=== PATIENT | female | born 1945 | race Caucasian/White ===

== ENCOUNTER 2017-10-22 09:48 | Day surgery (SDC) | payer MEDICARE, OTHER ==
[2017-10-15 12:02] LABS: APPEARANCE,URINE CLEAR; BILIRUBIN,URINE NEGATIVE (NEGATIVE); GLUCOSE, URINE 50 mg/dL (NEGATIVE); KETONES,URINE NEGATIVE (NEGATIVE); LEUKOCYTE ESTERASE,URINE NEGATIVE (NEGATIVE); NITRITE,URINE NEGATIVE (NEGATIVE); PROTEIN,URINE NEGATIVE (NEGATIVE); URINE SPECIFIC GRAVITY 1.012; UROBILINOGEN,URINE NEGATIVE mg/dL (<2.0)
[2017-10-15 12:05] LABS: ABSOLUTE BASOPHILS # (AUTO) 0.1 10^3/uL (0.0-0.2); ABSOLUTE EOSINOPHILS # (AUTO) 0.2 10^3/uL (0.0-0.6); ABSOLUTE LYMPHOCYTES (AUTO) 2.5 10^3/uL (0.5-4.7); ABSOLUTE MONOCYTES (AUTO) 0.8 10^3/uL (0.1-1.4); BASOPHILS % (AUTO) 0.7 % (0-2); EOSINOPHILS % (AUTO) 2.5 % (0-6); HEMATOCRIT 37.2 % (36.0-47.0); HEMOGLOBIN 12.7 g/dL (12.0-15.5); HGB HCT DIFFERENCE 0.9; LYMPHOCYTES % (AUTO) 25.7 % (13-45); MEAN CORPUSCULAR HEMOGLOBIN 30.6 pg (27.0-33.4); MEAN CORPUSCULAR HGB CONC 34.1 g/dL (32.0-36.0); MEAN CORPUSCULAR VOLUME 90 fl (80-97); MONOCYTES % (AUTO) 8.2 % (3-13); RED BLOOD COUNT 4.14 10^6/uL (3.72-5.28); RED CELL DISTRIBUTION WIDTH 13.5 % (11.5-14.0); SEGMENTED NEUTROPHILS % (AUTO) 62.9 % (42-78); WHITE BLOOD COUNT 9.6 10^3/uL (4.0-10.5)
[2017-10-15 12:29] LABS: ANION GAP 17 (5-19); BLOOD UREA NITROGEN 29 mg/dL (7-20); CALCIUM 9.2 mg/dL (8.4-10.2); CARBON DIOXIDE 30 mmol/L (22-30); CHLORIDE 92 mmol/L (98-107); CREATININE RESULT 1.04 mg/dL (0.52-1.25); GLUCOSE 209 mg/dL (75-110); POTASSIUM 3.6 mmol/L (3.6-5.0); SODIUM 138.7 mmol/L (137-145)
--- NOTE | 2017-10-15 13:29 | RADIOLOGY REPORT (SQ) ---
EXAM DESCRIPTION: CHEST PA/LATERAL COMPLETED DATE/TIME: 10/15/2017 11:51 am REASON FOR STUDY: PRE-OP COMPARISON: None. EXAM PARAMETERS: NUMBER OF VIEWS: two views TECHNIQUE: Digital Frontal and Lateral radiographic views of the chest acquired. RADIATION DOSE: NA LIMITATIONS: none FINDINGS: LUNGS AND PLEURA: No infiltrates or effusions. There is a 12 mm nodule in the right lower lung field. This is possibly seen on the lateral view is PE MEDIASTINUM AND HILAR STRUCTURES: No masses or contour abnormalities. HEART AND VASCULAR STRUCTURES: Heart size is borderline. There is no failure. BONES: No acute findings. HARDWARE: None in the chest. OTHER: No other significant finding. IMPRESSION: 1. 12 mm right pulmonary nodule. Consider PET-CT. Consider biopsy. 2. No acute infiltrates. 3. Borderline heart size with no failure. TECHNICAL DOCUMENTATION: JOB ID: [id number] [employer]- All Rights Reserved
--- NOTE | 2017-10-15 21:18 | EKG REPORT ---
SEVERITY:- ABNORMAL ECG - SINUS RHYTHM PROBABLE LVH WITH SECONDARY REPOL ABNRM : Confirmed by: Dulce Hutson MD 15-Oct-2017 21:16:51
[~2017-10-22 09:48] MED LIST: CEFAZOLIN 2 GM/D5W RTU 2 GM/50 ML RTUPB IV PRN; DEXAMETHASONE SOD PHOSPHATE INJ 4 MG/1 ML VIAL ONE; GLYCOPYRROLATE INJ 0.4 MG/2 ML VIAL ONE; LIDOCAINE 2% INJ-PF (20 MG/ML) 2 ML AMPUL ONE; NORMAL SALINE 1000 ML (RENAL PATIENTS) IV PRN; ONDANSETRON HCL INJ/PF 4 MG/2 ML SDV ONE; SUCCINYLCHOLINE CHLORIDE INJ 200 MG/10 ML VIAL ONE
[2017-10-22] MEDS ORDERED: BUPIVACAINE HCL 0.5 % INJ/PF 30 ML SDV ONE (10:31)
[2017-10-22 11:02] LABS: POTASSIUM 4.1 mmol/L (3.6-5.0)
[2017-10-22] MEDS ORDERED: MIDAZOLAM 2 MG/2 ML INJ ONE (12:05)
[2017-10-22] MEDS ORDERED: LIDOCAINE 2% INJ-PF (20 MG/ML) 10 ML AMPUL ONE (12:05)
[2017-10-22] MEDS ORDERED: FENTANYL CITRATE INJ/PF 100 MCG/2 ML AMPUL ONE ×2 (12:05→13:16)
[2017-10-22] MEDS ORDERED: EPHEDRINE SULFATE INJ 50 MG/1 ML AMPULE ONE (12:06)
[2017-10-22] MEDS ORDERED: PROPOFOL INJ 200 MG/20 ML VIAL IV ONE (12:06)
[2017-10-22] MEDS ORDERED: ONDANSETRON HCL INJ/PF 4 MG/2 ML SDV ONE (12:06)
[2017-10-22] MEDS ORDERED: ACETAMINOPHEN 100 ML IV ONE ×2 (12:06→18:05)
[2017-10-22] MEDS ORDERED: MEPERIDINE HCL/PF INJ 25 MG/1 ML DISP.SYRIN IV PRN ×2 (13:28→15:34)
[2017-10-22] MEDS ORDERED: FENTANYL CITRATE INJ/PF 100 MCG/2 ML AMPUL IV PRN ×6 (13:28→15:34)
[2017-10-22] MEDS ORDERED: DIPHENHYDRAMINE HCL 50 MG/ML VIAL IV PRN ×2 (13:28→15:34)
[2017-10-22] MEDS ORDERED: PROMETHAZINE HCL INJ 25 MG/1 ML VIAL IV PRN ×4 (13:28→15:34)
[2017-10-22] MEDS ORDERED: ONDANSETRON HCL INJ/PF 4 MG/2 ML SDV IV PRN ×2 (13:28→19:54)
[2017-10-22] MEDS ORDERED: OXYCODONE-ACETAMINOPHEN 5-325 MG TABLET PO PRN ×4 (13:28→15:34)
[2017-10-22] MEDS ORDERED: MORPHINE SULFATE 10 MG/ML INJ IV PRN ×3 (13:28→19:54)
[2017-10-22] MEDS ORDERED: HYDRALAZINE HCL INJ/PF 20 MG/1 ML SDV ONE (13:40)
[2017-10-22] MEDS ORDERED: HYDROMORPHONE HCL INJ/PF 2 MG/ML AMPULE ONE (14:46)
[2017-10-22] MEDS ORDERED: CEFAZOLIN INJ 1 GM VIAL ONE (16:29)
[2017-10-22] MEDS ORDERED: DOCUSATE SODIUM 100 MG CAPSULE PO PRN (17:13)
[2017-10-22] MEDS ORDERED: FUROSEMIDE 80 MG TABLET PO SCH (17:15)
--- NOTE | 2017-10-22 17:53 | RADIOLOGY REPORT (SQ) ---
EXAM DESCRIPTION: NO CHG FLUORO; ELBOW LEFT AP/LATERAL COMPLETED DATE/TIME: 10/22/2017 5:38 pm REASON FOR STUDY: ORIF LT ELBOW COMPARISON: None. FLUOROSCOPY TIME: 1.2 minutes 9 Images saved to PACS LIMITATIONS: None. PROCEDURE: ORIF elbow fractures and left radial head replacement appear FINDINGS: Images document the progress of the procedure. IMPRESSION: ORIF. Consult operative report for more detail. COMMENT: PQRS 6045F: Fluoroscopy time of the procedure is documented in the report. TECHNICAL DOCUMENTATION: JOB ID: [id number] [employer]- All Rights Reserved
--- NOTE | 2017-10-22 17:53 | RADIOLOGY REPORT (SQ) ---
EXAM DESCRIPTION: NO CHG FLUORO; ELBOW LEFT AP/LATERAL COMPLETED DATE/TIME: 10/22/2017 5:38 pm REASON FOR STUDY: ORIF LT ELBOW COMPARISON: None. FLUOROSCOPY TIME: 1.2 minutes 9 Images saved to PACS LIMITATIONS: None. PROCEDURE: ORIF elbow fractures and left radial head replacement appear FINDINGS: Images document the progress of the procedure. IMPRESSION: ORIF. Consult operative report for more detail. COMMENT: PQRS 6045F: Fluoroscopy time of the procedure is documented in the report. TECHNICAL DOCUMENTATION: JOB ID: [id number] [employer]- All Rights Reserved
[2017-10-22] MEDS ORDERED: (PENDING PHARMACY ID) (Metformin Hcl [Metformin Hcl] 1,000 MG) PO SCH (18:00)
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
[2017-10-22] MEDS ORDERED: KETOROLAC TROMETHAMINE INJ/PF 30 MG/1 ML SDV ONE (18:05)
[2017-10-22] MEDS: HYDRALAZINE HCL INJ/PF 20 MG/1 ML SDV ONE ×2 (18:20→18:40)
[2017-10-22] MEDS ORDERED: INSULIN LISPRO 100 UNIT/ML 3 ML VIAL SUBCUT PRN (18:57)
[2017-10-22] MEDS ORDERED: DEXTROSE 40% GEL 15 GM TUBE X 2 PO PRN (18:57)
[2017-10-22] MEDS ORDERED: DEXTROSE 50%-WATER SYRINGE 12.5 GM/25 ML DOSE IV PRN (18:57)
[2017-10-22] MEDS ORDERED: GLUCAGON,HUMAN RECOMB 1 MG INJ IM PRN (18:57)
[2017-10-22] MEDS ORDERED: DEXTROSE 40% GEL 15 GM TUBE PO PRN (18:57)
[2017-10-22] MEDS ORDERED: DEXTROSE 50%-WATER SYRINGE 25 GM/50 ML DOSE IV PRN (18:57)
[2017-10-22] MEDS ORDERED: HYDRALAZINE HCL INJ/PF 20 MG/1 ML SDV IV ONE (19:00)
[2017-10-22] MEDS ORDERED: GLIMEPIRIDE 4 MG TABLET PO ONE (21:00)
[2017-10-22] MEDS ORDERED: METFORMIN HCL 500 MG TABLET PO ONE (21:00)
[2017-10-22] MEDS ORDERED: (PENDING PHARMACY ID) (Melatonin [Melatonin] 10 MG) PO SCH (22:00)
[2017-10-22] MEDS ORDERED: METOPROLOL SUCCINATE 50 MG TAB.SR.24H PO SCH (22:00)
[2017-10-22] MEDS ORDERED: RIVAROXABAN 10 MG TABLET PO SCH (22:00)
[2017-10-22] MEDS ORDERED: ATORVASTATIN CALCIUM 10 MG TABLET PO SCH (22:00)
[2017-10-22] MEDS ORDERED: (PENDING PHARMACY ID) (Metoprolol Succinate [Metoprolol Succinate] 100 MG) PO SCH (22:00)
[2017-10-22] MEDS ORDERED: SERTRALINE HCL 50 MG TABLET PO SCH (22:00)
[2017-10-22] MEDS ORDERED: (PENDING PHARMACY ID) (Pravastatin Sodium [Pravastatin Sodium] 20 MG) PO SCH (22:00)
[2017-10-22] MEDS: CLONIDINE HCL 0.2 MG TABLET PO SCH (22:01)
[2017-10-22] MEDS: OXYCODONE-ACETAMINOPHEN 5-325 MG TABLET PO PRN (22:02)
[2017-10-22] MEDS: CEFAZOLIN 2 GM/D5W RTU 2 GM/50 ML RTUPB IV SCH (23:10)
[2017-10-22] MEDS: KETOROLAC TROMETHAMINE INJ/PF 30 MG/1 ML SDV IV SCH (23:11)
[2017-10-23] MEDS: ACETAMINOPHEN 100 ML IV SCH ×2 (02:17→09:53)
[2017-10-23] MEDS: CEFAZOLIN 2 GM/D5W RTU 2 GM/50 ML RTUPB IV SCH (05:01)
[2017-10-23] MEDS: KETOROLAC TROMETHAMINE INJ/PF 30 MG/1 ML SDV IV SCH (05:01)
[2017-10-23] MEDS: OXYCODONE-ACETAMINOPHEN 5-325 MG TABLET PO PRN (05:02)
[2017-10-23 05:35] LABS: HEMATOCRIT 35.2 % (36.0-47.0); HEMOGLOBIN 11.8 g/dL (12.0-15.5); HGB HCT DIFFERENCE 0.2; MEAN CORPUSCULAR HEMOGLOBIN 30.5 pg (27.0-33.4); MEAN CORPUSCULAR HGB CONC 33.6 g/dL (32.0-36.0); MEAN CORPUSCULAR VOLUME 91 fl (80-97); RED BLOOD COUNT 3.88 10^6/uL (3.72-5.28); RED CELL DISTRIBUTION WIDTH 14.2 % (11.5-14.0); WHITE BLOOD COUNT 14.2 10^3/uL (4.0-10.5)
[2017-10-23] MEDS ORDERED: LANSOPRAZOLE 30 MG TAB.RAP.DR PO SCH (06:00)
[2017-10-23] MEDS ORDERED: FUROSEMIDE 40 MG TABLET PO SCH (08:00)
[2017-10-23] MEDS ORDERED: METFORMIN HCL 500 MG TABLET PO SCH (08:00)
--- NOTE | 2017-10-23 08:14 | PDOC DISCHARGE SUMMARY ---
General - Admit/Disc Date/PCP Admission Date/Primary Care Provider: KATHERIN SCHRADER MD Discharge Date: 10/23/17 - Additional Information Discharge Activity: No Lifting Over 10 Pounds, No Lifting/Push/Pulling Home Medications: Acetaminophen/Diphenhydramine [Tylenol Pm Ex-Strength Caplet] 2 tab PO QHS PRN 10/15/17 Aspirin [Lo-Dose Aspirin EC] 81 mg PO DAILY 10/15/17 Clonidine HCl 0.2 mg PO BID 10/15/17 Docusate Sodium [Dok] 100 mg PO DAILY PRN 10/15/17 Furosemide [Lasix 80 mg Tablet] 80 mg PO ASDIR 10/15/17 Glimepiride 4 mg PO BID 10/15/17 Insulin Aspart Prot/Insuln Asp [Novolog Mix 70-30 Flexpen Syrn] 25 units SUBCUT QHS 10/15/17 Insulin Aspart Prot/Insuln Asp [Novolog Mix 70-30 Flexpen Syrn] 45 units SUBCUT QAM 10/15/17 Lisinopril/Hydrochlorothiazide [Lisinopril-Hctz 20-25 mg Tab] 1 tab PO DAILY Melatonin 10 mg PO QHS 10/15/17 Metformin HCl 1,000 mg PO BID 10/15/17 Metoprolol Succinate 100 mg PO QHS 10/15/17 Multivitamin [Multivitamins] 1 cap PO DAILY 10/15/17 Omeprazole 40 mg PO DAILY 10/15/17 Ondansetron [Zofran Odt 4 mg Tablet] 4 mg PO Q6 PRN 10/15/17 Oxycodone HCl/Acetaminophen [Percocet 5-325 mg Tablet] 1 tab PO Q6 PRN 10/15/17 Pravastatin Sodium 20 mg PO QHS 10/15/17 Sertraline HCl 100 mg PO QHS 10/15/17 Oxycodone HCl/Acetaminophen [Percocet 7.5-325 mg Tablet] 1 - 2 tab PO ASDIR PRN #50 tab 10/22/17 Rivaroxaban [Xarelto 10 mg Tablet] 10 mg PO DAILY #14 tablet 10/22/17 History of Present Illness History of Present Illness: CAPRICE KNOTT is a 72 year old female with a trans-olecranon fracture dislocation left elbow with concomitant radial neck fracture who was admitted for an open reduction internal fixation of the left elbow. Hospital Course Hospital Course: 72-year-old white female with a Trans-olecranon fracture dislocation left elbow with concomitant radial neck fracture who was admitted through the OR and underwent open reduction internal fixation of the left elbow with coronoid fixation and radial head arthroplasty as well as repair of the ulnar collateral ligament. She was taken to PACU in satisfactory condition and returned to the surgical floor where her pain was controlled by nursing staff and Dr. motley and she stayed overnight. She has remained comfortable and her pain is been well controlled overnight. She will be discharged home today. She will follow- up with Dr. motley at [facility] 2 weeks postoperatively for reevaluation. Physical Exam Vital Signs: Temp Pulse Resp BP Pulse Ox 36.8 C 71 18 117/51 L 95 10/23/17 04:00 10/23/17 04:00 10/23/17 04:00 10/23/17 04:00 10/23/17 04:00 Intake & Output 10/22/17 10/23/17 10/24/17 06:59 06:59 06:59 Intake Total 4010 Output Total 1850 Balance 2160 Weight 78.47 kg General appearance: PRESENT: no acute distress, well-developed, well-nourished Head exam: PRESENT: atraumatic, normocephalic Respiratory exam: PRESENT: unlabored Additional comments: Patient lying recumbent in hospital bed with left upper extremity in postop compression dressing elevated on a pillow. This dressing is clean dry and intact. She has brisk capillary refill to fingers on bilateral upper extremities and her sensory motor functions are intact and her distal neurovascular exam is intact. Although she is tentative to move the left upper extremity she exhibits appropriate range of motion for this stage in healing process. Musculoskeletal exam: PRESENT: ambulatory Additional comments: As stated patient's left upper extremity is in postop compression dressing and she exhibits appropriate range of motion of the left shoulder at this time. She will remain immobilized in the upper extremity splint and postop compression dressing until her follow-up appointment with Dr. motley at [facility] for surgery. she may require occupational therapy referral when she is discharged from hospital to improve strength and range of motion of the left upper extremity. This will be ultimately determined by Dr. Malone. Neurological exam: PRESENT: alert, awake, oriented to person, oriented to place , oriented to time, oriented to situation, CN II-XII grossly intact. ABSENT: motor sensory deficit Psychiatric exam: PRESENT: appropriate affect, normal mood. ABSENT: homicidal ideation, suicidal ideation Skin exam: PRESENT: dry, intact, warm. ABSENT: cyanosis, rash Results Laboratory Results: 10/23/17 05:12 10/22/17 10:18 10/22/17 10/23/17 10:18 05:12 WBC 14.2 H RBC 3.88 Hgb 11.8 L Hct 35.2 L MCV 91 MCH 30.5 MCHC 33.6 RDW 14.2 H Plt Count 314 Potassium 4.1 Glucose 193 H Impressions: Chest X-Ray 10/15/17 11:35 IMPRESSION: 1. 12 mm right pulmonary nodule. Consider PET-CT. Consider biopsy. 2. No acute infiltrates. 3. Borderline heart size with no failure. Elbow X-Ray 10/22/17 00:00 IMPRESSION: ORIF. Consult operative report for more detail. Fluoroscopy 10/22/17 00:00 IMPRESSION: ORIF. Consult operative report for more detail. Plan Discharge Plan: 72-year-old white female one day status post open reduction internal fixation of left elbow with coronoid fixation, radial head arthroplasty and ulnar collateral ligament repair. Patient will be discharged home today. Her OpSite compression dressing and splint will be left in place in the left upper extremity immobilized until her follow-up appointment [facility] for surgery. She will follow-up [address] Malone for reevaluation. Time Spent: Less than 30 Minutes
[2017-10-23 08:46] VITALS: BP 130/50
[2017-10-23] MEDS ORDERED: (PENDING PHARMACY ID) (Multivitamin [Multivitamins] 1 CAP) PO SCH (10:00)
[2017-10-23] MEDS ORDERED: (PENDING PHARMACY ID) (Lisinopril/Hydrochlorothiazide [Lisinopril-Hctz 20-25 Mg Tab] 1 TAB PO SCH (10:00)
[2017-10-23] MEDS ORDERED: HYDROCHLOROTHIAZIDE 25 MG TABLET PO SCH (10:00)
[2017-10-23] MEDS ORDERED: GLIMEPIRIDE 4 MG TABLET PO SCH (10:00)
[2017-10-23] MEDS ORDERED: LISINOPRIL 10 MG TABLET PO SCH (10:00)
[2017-10-23] MEDS ORDERED: ASPIRIN 81 MG TABLET, ENT COATED PO SCH (10:00)
[2017-10-23] MEDS ORDERED: MULTIVITAMIN TABLET PO SCH (10:00)
[2017-10-23] MEDS: CLONIDINE HCL 0.2 MG TABLET PO SCH (11:16)
== END 2017-10-23 11:25 | disposition home or self-care (01) ==
LOC: 3W 09:48 → 2N 09:48 → OROUT 09:48
PROVIDERS: ATTEND Orthopaedic Surgery
PROC: 0MQ40ZZ Repair Left Elbow Bursa and Ligament, Open Approach (ICD-10-PCS; 2017-10-22)
PROC: 0PSL04Z Reposition Left Ulna with Internal Fixation Device, Open Approach (ICD-10-PCS; principal; 2017-10-22 12:15)
PROC: 0RQM0ZZ Repair Left Elbow Joint, Open Approach (ICD-10-PCS; 2017-10-22 12:15)
DX: S52.132A Displaced fracture of neck of left radius, initial encounter for closed fracture (principal); S52.022A Displaced fracture of olecranon process without intraarticular extension of left ulna, initial encounter for closed fracture; S52.272A Monteggia's fracture of left ulna, initial encounter for closed fracture; W19.XXXA Unspecified fall, initial encounter; W51.XXXA Accidental striking against or bumped into by another person, initial encounter; I10 Essential (primary) hypertension; E11.65 Type 2 diabetes mellitus with hyperglycemia; E78.5 Hyperlipidemia, unspecified; K21.9 Gastro-esophageal reflux disease without esophagitis; E66.9 Obesity, unspecified; Z68.33 Body mass index [BMI] 33.0-33.9, adult; Z79.899 Other long term (current) drug therapy; Z79.84 Long term (current) use of oral hypoglycemic drugs; Z79.82 Long term (current) use of aspirin; Z85.828 Personal history of other malignant neoplasm of skin; Z79.4 Long term (current) use of insulin; Z79.01 Long term (current) use of anticoagulants
CPT/HCPCS: 93005; 36415 ×2; 82962; 82947; 84132; 85025; 85027; 80048; 81001; 83036; 71020; 73070; 93010; 24685; 24365; 24999; G0378; G0379; C1713 ×3; J2250; J0690 ×3; A9270 ×16; J1100; J3490 ×3; J3010; J0360; J1885 ×2; J2270; J1170; J0330; J2405; J2704; J0131 ×2; 01740

== ENCOUNTER 2017-12-03 11:48 | Inpatient (IN) | payer MEDICARE ==
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
--- NOTE | 2017-12-03 13:13 | EKG REPORT ---
SEVERITY:- ABNORMAL ECG - SINUS TACHYCARDIA MULTIPLE ATRIAL PREMATURE COMPLEXES PROBABLE LEFT ATRIAL ABNORMALITY PROBABLE LVH WITH SECONDARY REPOL ABNRM : Confirmed by: Jayy Domingo MD 03-Dec-2017 13:12:48
[2017-12-03 13:17] LABS: ABSOLUTE EOSINOPHILS # (AUTO) 0.1 10^3/uL (0.0-0.6); ABSOLUTE MONOCYTES (AUTO) 0.5 10^3/uL (0.1-1.4); ABSOLUTE NEUT (AUTO) 10.7 10^3/uL (1.7-8.2); BASOPHILS % (AUTO) 0.3 % (0-2); EOSINOPHILS % (AUTO) 0.7 % (0-6); HEMOGLOBIN 12.4 g/dL (12.0-15.5); LYMPHOCYTES % (AUTO) 8.4 % (13-45); MEAN CORPUSCULAR HEMOGLOBIN 28.6 pg (27.0-33.4); MEAN CORPUSCULAR HGB CONC 32.6 g/dL (32.0-36.0); MEAN CORPUSCULAR VOLUME 88 fl (80-97); MONOCYTES % (AUTO) 3.8 % (3-13); PLATELET COUNT 322 10^3/uL (150-450); RED BLOOD COUNT 4.33 10^6/uL (3.72-5.28); RED CELL DISTRIBUTION WIDTH 15.4 % (11.5-14.0); SEGMENTED NEUTROPHILS % (AUTO) 86.8 % (42-78); TOTAL CELLS COUNTED % (AUTO) 100 %; WHITE BLOOD COUNT 12.4 10^3/uL (4.0-10.5)
[2017-12-03 13:19] LABS: APPEARANCE,URINE CLEAR; BILIRUBIN,URINE NEGATIVE (NEGATIVE); COLOR,URINE YELLOW; GLUCOSE, URINE >=500 mg/dL (NEGATIVE); KETONES,URINE NEGATIVE (NEGATIVE); LEUKOCYTE ESTERASE,URINE NEGATIVE (NEGATIVE); NITRITE,URINE NEGATIVE (NEGATIVE); PROTEIN,URINE NEGATIVE (NEGATIVE); URINE SPECIFIC GRAVITY 1.028
--- NOTE | 2017-12-03 13:35 | RADIOLOGY REPORT (SQ) ---
EXAM DESCRIPTION: CHEST PA/LAT COMPLETED DATE/TIME: 12/03/2017 1:16 pm REASON FOR STUDY: Worsening shortness of breath 3-4 days COMPARISON: Two-view chest 10/15/2017 EXAM PARAMETERS: NUMBER OF VIEWS: two views TECHNIQUE: Digital Frontal and Lateral radiographic views of the chest acquired. RADIATION DOSE: NA LIMITATIONS: none FINDINGS: LUNGS AND PLEURA: No opacities, masses or pneumothorax. No pleural effusion. MEDIASTINUM AND HILAR STRUCTURES: No masses or contour abnormalities. HEART AND VASCULAR STRUCTURES: Heart normal size. No evidence for failure. BONES: Osteoporotic. No acute fracture HARDWARE: None in the chest. OTHER: No other significant finding. IMPRESSION: NO SIGNIFICANT RADIOGRAPHIC FINDING IN THE CHEST. TECHNICAL DOCUMENTATION: JOB ID: [id number] [employer]- All Rights Reserved
--- NOTE | 2017-12-03 13:38 | RADIOLOGY REPORT (SQ) ---
EXAM DESCRIPTION: L SPINE WHOLE COMPLETED DATE/TIME: 12/03/2017 1:16 pm REASON FOR STUDY: fall 1--18, LBP COMPARISON: None. NUMBER OF VIEWS: Five views including obliques. TECHNIQUE: AP, lateral, oblique, and sacral radiographic images acquired of the lumbar spine. LIMITATIONS: None. FINDINGS: MINERALIZATION: Osteopenic/osteoporotic SEGMENTATION: Normal. No transitional anatomy. ALIGNMENT: Normal. VERTEBRAE: Maintained height. No fracture or worrisome bone lesion. DISCS: Mild disc space loss of height with anterior osteophyte formation at L1-2, L2-3, and L3-4 POSTERIOR ELEMENTS: Pedicles and facets are intact. No pars defect or posterior arch defects. Bilat eral facet arthropathy at L4-5 and L5-S1 HARDWARE: None in the spine. PARASPINAL SOFT TISSUES: Multiple calcified stones in the gallbladder PELVIS: SI joint sclerosis. Pelvis not entirely included in the field of view OTHER: No other significant finding. IMPRESSION: No lumbar compression deformity is identified. TECHNICAL DOCUMENTATION: JOB ID: [id number] [employer]- All Rights Reserved
[2017-12-03 13:42] LABS: ALANINE AMINOTRANSFERASE 46 U/L (9-52); ALBUMIN 3.8 g/dL (3.5-5.0); ALKALINE PHOSPHATASE 252 U/L (38-126); ANION GAP 17 (5-19); ASPARTATE AMINO TRANSFERASE 45 U/L (14-36); BILIRUBIN,DIRECT 0.5 mg/dL (0.0-0.4); BLOOD UREA NITROGEN 38 mg/dL (7-20); CALCIUM 9.1 mg/dL (8.4-10.2); CARBON DIOXIDE 23 mmol/L (22-30); CHLORIDE 94 mmol/L (98-107); CREATINE KINASE 27 U/L (30-135); GLUCOSE 327 mg/dL (75-110); POTASSIUM 3.6 mmol/L (3.6-5.0); SODIUM 133.9 mmol/L (137-145); TOTAL PROTEIN 7.1 g/dL (6.3-8.2)
[2017-12-03 13:58] LABS: TROPONIN I 0.11 ng/mL
--- NOTE | 2017-12-03 14:32 | ER Document Report ---
ED General - General Chief Complaint: Breathing Difficulty Stated Complaint: SHORTNESS OF BREATH Time Seen by Provider: 12/03/17 11:58 Notes: 72-year-old female patient emergency department chief complaint of shortness of breath. States that she had diarrhea a week. Was a little weak and dizzy and fell. Landed on her butt. Complaining of pain in her low back. Pain is now radiating down both legs. Also complaining of chest pain and shortness of breath now. She states she is also having some chest pain TRAVEL OUTSIDE OF THE [place] IN LAST 30 DAYS: No - HPI Onset: Last week Onset/Duration: Gradual, Worse Quality of pain: Throbbing Severity: Moderate Pain Level: 3 Associated symptoms: Nonproductive cough, Fever Exacerbated by: Sitting, Standing, Movement, Walking, Coughing Relieved by: Denies - Related Data Allergies/Adverse Reactions: No Known Allergies Allergy (Verified 12/03/17 11:51) Home Medications: Current Home Medications Sulfamethoxazole/Trimethoprim [Sulfamethoxazole-Tmp Ds Tablet] 1 each PO DAILY 12/03/17 [History] Past Medical History - General Information source: Patient - Social History Smoking Status: Never Smoker Chew tobacco use (# tins/day): No Frequency of alcohol use: None Drug Abuse: None Lives with: Family Family History: Reviewed & Not Pertinent Patient has suicidal ideation: No Patient has homicidal ideation: No - Past Medical History Cardiac Medical History: Reports: Hx Hypertension Denies: Hx Coronary Artery Disease, Hx Heart Attack Pulmonary Medical History: Denies: Hx Asthma, Hx Bronchitis, Hx COPD, Hx Pneumonia Neurological Medical History: Denies: Hx Cerebrovascular Accident, Hx Seizures Renal/ Medical History: Denies: Hx Peritoneal Dialysis Musculoskeltal Medical History: Denies Hx Arthritis Psychiatric Medical History: Reports: Hx Depression - Immunizations Hx Diphtheria, Pertussis, Tetanus Vaccination: Yes Hx Pneumococcal Vaccination: 09/25/17 Review of Systems - Review of Systems Constitutional: Chills, Fever, Malaise, Weakness EENT: No symptoms reported Cardiovascular: Palpitations, Dyspnea, Dizziness, Lightheaded Respiratory: Cough, Short of breath Gastrointestinal: No symptoms reported Genitourinary: No symptoms reported Female Genitourinary: No symptoms reported Musculoskeletal: Back pain Skin: No symptoms reported Hematologic/Lymphatic: No symptoms reported Neurological/Psychological: No symptoms reported Physical Exam - Vital signs Vitals: Temp Pulse Resp BP Pulse Ox 98.3 F 111 H 20 119/94 H 99 12/03/17 12:00 12/03/17 12:00 12/03/17 12:00 12/03/17 12:00 12/03/17 12:00 Interpretation: Normal - General General appearance: Alert Notes: Uncomfortable appearing. - HEENT Head: Normocephalic, Atraumatic Eyes: Normal Pupils: PERRL - Respiratory Respiratory status: No respiratory distress Chest status: Nontender Breath sounds: Rales - Faint rales bilateral at the base Chest palpation: Normal - Cardiovascular Rhythm: Irregularly irregular, Tachycardia Heart sounds: Normal auscultation Murmur: No - Abdominal Inspection: Normal Distension: No distension Bowel sounds: Normal Tenderness: Nontender Organomegaly: No organomegaly - Back Back: Normal. No: Deformity/step-off, CVA tenderness - There is tenderness to palpation midline of the lumbar spine approximately L3 level. - Extremities General upper extremity: Normal inspection, Nontender, Normal color, Normal ROM , Normal temperature General lower extremity: Normal inspection, Nontender, Normal color, Normal ROM , Normal temperature, Normal weight bearing. No: Marcos's sign - Neurological Neuro grossly intact: Yes Cognition: Normal Orientation: AAOx4 [place] Coma Scale Eye Opening: Spontaneous Josiah Coma Scale Verbal: Oriented [place] Coma Scale Motor: Obeys Commands Josiah Coma Scale Total: 15 Speech: Normal Motor strength normal: LUE, RUE, LLE, RLE Sensory: Normal - Psychological Associated symptoms: Normal affect, Normal mood - Skin Skin Temperature: Warm Skin Moisture: Dry Skin Color: Normal Course - Re-evaluation Re-evalutation: 12/03/17 14:59 Patient with elevated BNP, shortness of breath with tachycardia which seems irregular. X-ray of the lumbar spine is unremarkable as well as chest x-ray however is tenderness to palpation midline with pain shooting down both legs. Concern for compression fracture that is not seen on x-ray. Will proceed with lumbar spine CT. Also concerning that she has elevated BNP with no history of CHF. Patient has A. fib with RVR based on exam. Initial EKG showed a sinus tachycardia. I am repeating the EKG at this time. Patient will likely need to be admitted for CHF, A. fib and pain. 12/03/17 15:01 Laboratory 12/03/17 12/03/1712/03/18 12:46 12:57 12:57 WBC 12.4 H RBC 4.33 Hgb 12.4 Hct 38.0 MCV 88 MCH 28.6 MCHC 32.6 RDW 15.4 H Plt Count 322 Seg Neutrophils % 86.8 H Lymphocytes % 8.4 L Monocytes % 3.8 Eosinophils % 0.7 Basophils % 0.3 Absolute Neutrophils 10.7 H Absolute Lymphocytes 1.0 Absolute Monocytes 0.5 Absolute Eosinophils 0.1 Absolute Basophils 0.0 Sodium 133.9 L Potassium 3.6 Chloride 94 L Carbon Dioxide 23 Anion Gap 17 BUN 38 H Creatinine 1.43 H Est GFR ( Amer) 44 L Est GFR (Non-Af Amer) 36 L Glucose 327 H Calcium 9.1 Total Bilirubin 1.0 Direct Bilirubin 0.5 H Neonat Total Bilirubin Not Reportable Neonat Direct Bilirubin Not Reportable Neonat Indirect Bili Not Reportable AST 45 H ALT 46 Alkaline Phosphatase 252 H Creatine Kinase 27 L Troponin I NT-Pro-B Natriuret Pep Total Protein 7.1 Albumin 3.8 Urine Color YELLOW Urine Appearance CLEAR Urine pH 5.0 Ur Specific [place] 1.028 Urine Protein NEGATIVE Urine Glucose (UA) >=500 H Urine Ketones NEGATIVE Urine Blood NEGATIVE Urine Nitrite NEGATIVE Urine Bilirubin NEGATIVE Urine Urobilinogen 2.0 H Ur Leukocyte Esterase NEGATIVE Urine WBC (Auto) 2 Urine RBC (Auto) 0 U Hyaline Cast (Auto) 5 Squamous Epi Cells Auto <1 Urine Mucus (Auto) RARE Urine Ascorbic Acid 20 H 12/03/17 12:57 WBC RBC Hgb Hct MCV MCH MCHC RDW Plt Count Seg Neutrophils % Lymphocytes % Monocytes % Eosinophils % Basophils % Absolute Neutrophils Absolute Lymphocytes Absolute Monocytes Absolute Eosinophils Absolute Basophils Sodium Potassium Chloride Carbon Dioxide Anion Gap BUN Creatinine Est GFR ( Amer) Est GFR (Non-Af Amer) Glucose Calcium Total Bilirubin Direct Bilirubin Neonat Total Bilirubin Neonat Direct Bilirubin Neonat Indirect Bili AST ALT Alkaline Phosphatase Creatine Kinase Troponin I 0.110 NT-Pro-B Natriuret Pep 7120 H Total Protein Albumin Urine Color Urine Appearance Urine pH Ur Specific [place] Urine Protein Urine Glucose (UA) Urine Ketones Urine Blood Urine Nitrite Urine Bilirubin Urine Urobilinogen Ur Leukocyte Esterase Urine WBC (Auto) Urine RBC (Auto) U Hyaline Cast (Auto) Squamous Epi Cells Auto Urine Mucus (Auto) Urine Ascorbic Acid Chest X-Ray 12/03/17 12:24 IMPRESSION: NO SIGNIFICANT RADIOGRAPHIC FINDING IN THE CHEST. Lumbar Spine X-Ray 12/03/17 12:24 IMPRESSION: No lumbar compression deformity is identified. 12/03/17 16:01 CT scan of the lumbar spine unremarkable 12/03/17 16:02 Is still having sinus tachycardia with chest pain shortness of breath. Will get CT angios of the chest to rule out PE. Patient will likely need to be admitted. Will consult with hospitalist at this time. 12/03/17 16:10 With hospitalist. Ordering the CT angios. Will go ahead and admit at this time. Hospitalist follow-up on the results of the x-rays and CTs - Vital Signs Vital signs: Temp Pulse Resp BP Pulse Ox 98.3 F 111 H 21 H 152/82 H 97 12/03/17 12:00 12/03/17 12:00 12/03/17 16:01 12/03/17 16:01 12/03/17 16:01 - Laboratory Result Diagrams: 12/03/17 12:57 12/03/17 12:57 Laboratory results interpreted by me: 12/03/17 12/03/17 12/03/17 12:46 12:57 12:57 WBC 12.4 H RDW 15.4 H Seg Neutrophils % 86.8 H Lymphocytes % 8.4 L Absolute Neutrophils 10.7 H Sodium 133.9 L Chloride 94 L BUN 38 H Creatinine 1.43 H Est GFR ( Amer) 44 L Est GFR (Non-Af Amer) 36 L Glucose 327 H Direct Bilirubin 0.5 H AST 45 H Alkaline Phosphatase 252 H Creatine Kinase 27 L NT-Pro-B Natriuret Pep Urine Glucose (UA) >=500 H Urine Urobilinogen 2.0 H Urine Ascorbic Acid 20 H 12/03/17 12:57 WBC RDW Seg Neutrophils % Lymphocytes % Absolute Neutrophils Sodium Chloride BUN Creatinine Est GFR ( Amer) Est GFR (Non-Af Amer) Glucose Direct Bilirubin AST Alkaline Phosphatase Creatine Kinase NT-Pro-B Natriuret Pep 7120 H Urine Glucose (UA) Urine Urobilinogen Urine Ascorbic Acid - EKG Interpretation by Ut EKG shows normal: QRS Complexes, ST-T Waves Rate: Tachycardia Rhythm: A.Fib Additional EKG results interpreted by me: 12/03/17 16:02 Repeat EKG at 1507: Sinus tachycardia. Critical Care Note - Critical Care Note Total time excluding time spent on procedures (mins): 45 Comments: Tachycardia, shortness of breath Discharge - Discharge Clinical Impression: Back pain at L4-L5 level Congestive heart failure (CHF) Qualifiers: Congestive heart failure type: unspecified Congestive heart failure chronicity : acute Qualified Code(s): I50.9 - Heart failure, unspecified Condition: Fair Disposition: ADMITTED INPATIENT Admitting Provider: Hospitalist - [facility] Admitted: Telemetry Referrals: KATHERIN SCHRADER MD [Primary Care Provider] - Follow up as needed
--- NOTE | 2017-12-03 15:58 | RADIOLOGY REPORT (SQ) ---
EXAM DESCRIPTION: CT LUMBAR SPINE WITHOUT COMPLETED DATE/TIME: 12/03/2017 3:35 pm REASON FOR STUDY: pain s/p fall with pain in bilat legs COMPARISON: Lumbar spine plain films 12/03/2017 TECHNIQUE: Axial images acquired through the lumbar spine without intravenous contrast. Images revi ewed with lung, soft tissue and bone windows. Reconstructed coronal and sagittal MPR images reviewed . All images stored on PACS. All CT scanners at this facility use dose modulation, iterative reconstruction, and/or weight based d osing when appropriate to reduce radiation dose to as low as reasonably achievable (ALARA). [facility]: Dose Right [facility]: CareDose [facility]: Dose Right [facility]: Teradose 4D [facility]: [employer] RADIATION DOSE: 46.5 mGy. LIMITATIONS: None. FINDINGS: SEGMENTATION: Normal. No transitional anatomy. ALIGNMENT: Minimal grade 1 anterolisthesis of L4 over L5 VERTEBRAL BODIES: No fractures. No dislocation. No acute findings. DISCS: No gross acute disc protrusion/herniation. There is minimal posterior disc bulging at L1-2 an d mild facet and ligament hypertrophy with borderline central canal narrowing at this level. There i s mild diffuse posterior disc bulge, and ligamentum flavum thickening at L4-5 with mild central canal narrowing. PEDICLES, TRANSVERSE PROCESSES: No fractures. No dislocation. No acute findings. FACETS, POSTERIOR ELEMENTS: No fractures. No dislocation. HARDWARE: None in the spine. VISUALIZED RIBS: No fractures. SOFT TISSUES: Calcified stones in the gallbladder OTHER: Report discussed with Dr. Valdez IMPRESSION: No acute fracture or malalignment TECHNICAL DOCUMENTATION: JOB ID: [id number] Quality ID # [id number]: Final reports with documentation of one or more dose reduction techniques (e.g., Au tomated exposure control, adjustment of the mA and/or kV according to patient size, use of iterative reconstruction technique) 2010 [employer]- All Rights Reserved
--- NOTE | 2017-12-03 16:17 | RADIOLOGY REPORT (SQ) ---
EXAM DESCRIPTION: PELVIS AP COMPLETED DATE/TIME: 12/03/2017 4:06 pm REASON FOR STUDY: pain in legs COMPARISON: Lumbar spine films same date NUMBER OF VIEWS: One view TECHNIQUE: AP Pelvis LIMITATIONS: Large abdomen, difficult to penetrate the film FINDINGS: MINERALIZATION: Osteopenic HIPS: No acute fracture or dislocation. No worrisome bone lesions. PELVIS AND SACRUM: No acute fracture or dislocation. No worrisome bone lesions. PUBIS AND ISCHIUM: No acute fracture. LOWER LUMBAR SPINE: No significant findings as visualized. SOFT TISSUES: No findings. OTHER: No other significant finding. IMPRESSION: NEGATIVE STUDY OF THE PELVIS. TECHNICAL DOCUMENTATION: JOB ID: [id number] [employer]@- All Rights Reserved
[2017-12-03] MEDS ORDERED: KETOROLAC TROMETHAMINE INJ/PF 30 MG/1 ML SDV IV ONE (16:19)
[2017-12-03] MEDS ORDERED: ASPIRIN 325 MG TABLET PO ONE (16:19)
[2017-12-03] MEDS ORDERED: ONDANSETRON 4 MG TAB.RAPDIS PO ONE (16:20)
[2017-12-03] MEDS ORDERED: MORPHINE SULFATE 10 MG/ML INJ IV ONE (16:20)
--- NOTE | 2017-12-03 17:23 | RADIOLOGY REPORT (SQ) ---
EXAM DESCRIPTION: CTA CHEST COMPLETED DATE/TIME: 12/03/2017 5:02 pm REASON FOR STUDY: chest pain, tachycardia, sob COMPARISON: None. TECHNIQUE: CT scan of the chest performed using helical scanning technique with dynamic intravenous contrast injection. Images reviewed with lung, soft tissue and bone windows. Reconstructed coronal and sagittal MPR images reviewed. Additional 3 dimensional post-processing performed to develop Maximal Intensity Projection images (PA P). All images stored on PACS. All CT scanners at this facility use dose modulation, iterative reconstruction, and/or weight based d osing when appropriate to reduce radiation dose to as low as reasonably achievable (ALARA). [facility]: Dose Right [facility]: CareDose [facility]: Dose Right [facility]: Teradose 4D [facility]: [employer] CONTRAST TYPE AND DOSE: contrast/concentration: Isovue 370.00 mg/ml; Total Contrast Delivered: 83.1 ml; Total Saline Delivered: 110.0 ml Contrast bolus adequate for pulmonary arteries and aorta. RENAL FUNCTION: CREATININE MEASURES 1.43 RADIATION DOSE: CT Rad equipment meets quality standard of care and radiation dose reduction techniq ues were employed. CTDIvol: 26.7 - 33.1 mGy. DLP: 938 mGy-cm. . LIMITATIONS: None. FINDINGS: LUNGS AND PLEURA: There is a 14 x 12 x 10 mm spiculated nodule within the right middle lob e seen on series 4 image 61. There is an adjacent 4 mm pulmonary nodule seen on series 4, image 58. There is dependent subsegmental atelectasis. Lungs otherwise clear. No pleural effusion or pneumot horax. AORTA AND GREAT VESSELS: No aneurysm. Contrast bolus not optimized for the aorta. HEART: Multichamber cardiomegaly. No pericardial effusion. Moderate to marked coronary artery calcif ications. PULMONARY ARTERIES: Mildly enlarged pulmonary artery trunk. No emboli visualized in the main pulmona ry arteries or the segmental branches. HILAR AND MEDIASTINAL STRUCTURES: No identified masses or abnormal nodes. HARDWARE: None in the chest. UPPER ABDOMEN: 13 mm indeterminate nodule right adrenal gland and 15 mm indeterminate nodule left adr enal gland. Cholelithiasis without cholecystitis. No additional acute or significant findings. THYROID AND OTHER SOFT TISSUES: No masses. No adenopathy. BONES: Degenerative change without fracture or suspicious osseous lesion identified. 3D MIPS: Confirm above findings. OTHER: No other significant finding. IMPRESSION: NO PULMONARY EMBOLI. 14 MM SPICULATED NODULE WITHIN THE RIGHT MIDDLE LOBE SUSPICIOUS FOR NEOPLASTIC PROCESS. RECOMMEND BI OPSY AND/OR PET-CT. THERE IS A 4 MM DISC TEEN PULMONARY NODULE WHICH COULD REPRESENT A SATELLITE LES ION. BILATERAL INDETERMINATE ADRENAL NODULES ABOVE. RECOMMEND DEDICATED ADRENAL CT OR MRI FOR COMPLETE CHARACTERIZATION. 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 COMMENT: Quality ID # [id number]: Final reports with documentation of one or more dose reduction techniques (e.g., Automated exposure control, adjustment of the mA and/or kV according to patient size, use of iterative reconstruction technique) TECHNICAL DOCUMENTATION: JOB ID: [id number] [employer]- All Rights Reserved
[2017-12-03] MEDS ORDERED: ONDANSETRON 4 MG TAB.RAPDIS PO PRN (18:25)
[2017-12-03] MEDS ORDERED: MAG HYDROX/AL HYDROX/SIMETH SUSP 30 ML UDCUP PO PRN (18:25)
[2017-12-03] MEDS ORDERED: OXYCODONE-ACETAMINOPHEN 5-325 MG TABLET PO PRN (18:25)
[2017-12-03] MEDS ORDERED: DEXTROSE 40% GEL 15 GM TUBE PO PRN ×2 (18:32)
[2017-12-03] MEDS ORDERED: DEXTROSE 50%-WATER 25 GM/50 ML DISP.SYRIN IV PRN ×2 (18:32)
[2017-12-03] MEDS ORDERED: GLUCAGON,HUMAN RECOMB 1 MG INJ IM PRN (18:32)
--- NOTE | 2017-12-03 18:36 | EKG REPORT ---
SEVERITY:- ABNORMAL ECG - SINUS TACHYCARDIA CONSIDER LEFT VENTRICULAR HYPERTROPHY : Confirmed by: Jayy Domingo MD 03-Dec-2017 18:35:56
[2017-12-03] MEDS: INSULIN LISPRO 100 UNIT/ML 3 ML VIAL SUBCUT PRN ×2 (18:55→23:35)
[2017-12-03] MEDS: NORMAL SALINE 1000 ML 1,000 ML IV PRN ×2 (19:11→23:35)
--- NOTE | 2017-12-03 19:25 | Progress Note ---
Provider Note Provider Note: Patient seen and evaluated in the emergency room. I was contacted by the hospitalist for evaluation and recheck of her left elbow. She was taken to the emergency room secondary to shortness of breath. As for her left elbow she states she is doing well. Continue daily dressing changes. Has been taking antibiotics as directed. Denies fever chills or sweats. Denies discomfort. Objective: Surgical incision well approximated no erythema or drainage left elbow:. No palpable fluctuance. There is dry drainage on the dressing. No pain with elbow range of motion. No sensory deficits. Status post ORIF left olecranon with radial head arthroplasty Currently there is no sign or symptoms of infection of her left elbow she can discontinue her antibiotics. According to the hospitalist the plan is for observation at this point patient will follow-up with me on an outpatient basis as previously scheduled.
[2017-12-03 20:41] LABS: CREATINE KINASE MB < 0.22 ng/mL (<4.55)
[2017-12-03 20:44] LABS: TROPONIN I 0.127 ng/mL
[2017-12-03] MEDS ORDERED: HEPARIN SODIUM,PORCINE/D5W 25,000 UNIT/250 ML RTUINJ IV PRN (20:46)
[2017-12-03] MEDS ORDERED: HEPARIN SOD (PORCINE) 1,000 UNIT/ML 10 ML VIAL IV ONE (21:00)
[2017-12-03] MEDS ORDERED: HEPARIN SOD (PORCINE) 5,000 UNIT/ML 1 ML SYRINGE SUBCUT SCH (22:00)
[2017-12-03] MEDS ORDERED: ATORVASTATIN CALCIUM 10 MG TABLET PO SCH (22:00)
[2017-12-03] MEDS ORDERED: (PENDING PHARMACY ID) (Pravastatin Sodium [Pravastatin Sodium] 20 MG) PO SCH (22:00)
[2017-12-03] MEDS ORDERED: (PENDING PHARMACY ID) (Melatonin [Melatonin] 10 MG) PO SCH (22:00)
[2017-12-03] MEDS ORDERED: (PENDING PHARMACY ID) (Metoprolol Succinate [Metoprolol Succinate] 100 MG) PO SCH (22:00)
[2017-12-03] MEDS: CLONIDINE HCL 0.2 MG TABLET PO SCH (22:42)
[2017-12-03] MEDS: FAMOTIDINE 20 MG TABLET PO SCH (22:42)
[2017-12-03] MEDS: METOPROLOL SUCCINATE 50 MG TAB.SR.24H PO SCH (22:43)
[2017-12-03] MEDS: SERTRALINE HCL 50 MG TABLET PO SCH (22:44)
[2017-12-03] MEDS: ATORVASTATIN CALCIUM 40 MG TABLET PO SCH (22:44)
--- NOTE | 2017-12-03 22:47 | PDOC H&P ---
History of Present Illness Admission Date/PCP: 12/03/17 16:22 KATHERIN PINZON MD History of Present Illness: CAPRICE KNOTT is a 72 year old female with a PMH of DM, HTN, HLD, depression who presents with shortness of breath. Patient reports several days of shortness of breath. She reports that she fell at home after having some dizziness and hurt her lower back but did not lose consciousness. She does report that she has had some soft stool today. She reports that she has had some loose stool over the past week. She reports that she has had a decreased appetite has been eating or drinking very well. She reports that she has no cough and denies any sputum production. She does state that she had a fever of up to 101 several days ago and took Tylenol approximately 2 days ago she denies any nausea or vomiting. She does report some chest pressure that she reports is better with movement. CTA done in the emergency department reveals a spiculated lung mass with associated nodule. She is referred to the hospitalist service for acute renal failure. Past Medical History Cardiac Medical History: Reports: Hyperlipidema, Hypertension Denies: Coronary Artery Disease, Myocardial Infarction Pulmonary Medical History: Denies: Asthma, Bronchitis, Chronic Obstructive Pulmonary Disease (COPD), Pneumonia Neurological Medical History: Denies: Seizures Endocrine Medical History: Reports: Diabetes Mellitus Type 2, Obesity Musculoskeltal Medical History: Denies: Arthritis Psychiatric Medical History: Reports: Depression Hematology: Denies: Anemia Past Surgical History Past Surgical History: Reports: Orthopedic Surgery, Other - Skin cancer surgery on her nose Social History Lives with: Family Smoking Status: Never Smoker Frequency of Alcohol Use: None Hx Recreational Drug Use: No Drugs: None Hx Prescription Drug Abuse: No - Advance Directive Resuscitation Status: Full Code Surrogate healthcare decision maker:: Karely Barragan, daughter Family History Family History: CAD, DM, Malignancy Parental Family History Reviewed: Yes Children Family History Reviewed: Yes Sibling(s) Family History Reviewed.: Yes Medication/Allergy Home Medications: Acetaminophen/Diphenhydramine [Tylenol Pm Ex-Strength Caplet] 2 tab PO HSP PRN 10/15/17 Aspirin [Lo-Dose Aspirin EC] 81 mg PO DAILY 10/15/17 Clonidine HCl 0.2 mg PO Q12 10/15/17 Furosemide [Lasix 80 mg Tablet] 40 mg PO Q2D 10/15/17 Glimepiride 4 mg PO BID 10/15/17 Insulin Aspart Prot/Insuln Asp [Novolog Mix 70-30 Flexpen Syrn] 25 units SUBCUT QHS 10/15/17 Insulin Aspart Prot/Insuln Asp [Novolog Mix 70-30 Flexpen Syrn] 45 units SUBCUT QAM 10/15/17 Lisinopril/Hydrochlorothiazide [Lisinopril-Hctz 20-25 mg Tab] 1 tab PO DAILY Melatonin 10 mg PO QHS 10/15/17 Metformin HCl 1,000 mg PO BIDBS 10/15/17 Metoprolol Succinate 100 mg PO QHS 10/15/17 Multivitamin [Multivitamins] 1 cap PO DAILY 10/15/17 Omeprazole 40 mg PO DAILY 10/15/17 Pravastatin Sodium 20 mg PO QHS 10/15/17 Sertraline HCl 100 mg PO QHS 10/15/17 Allergies/Adverse Reactions: No Known Allergies Allergy (Verified 12/03/17 11:51) Review of Systems Constitutional: PRESENT: anorexia, chills, fatigue, fever(s). ABSENT: headache( s), weight gain, weight loss Eyes: ABSENT: visual disturbances Ears: ABSENT: hearing changes Cardiovascular: PRESENT: chest pain. ABSENT: dyspnea on exertion, edema, orthropnea, palpitations Respiratory: PRESENT: dyspnea. ABSENT: cough, hemoptysis, sputum Gastrointestinal: PRESENT: diarrhea, nausea. ABSENT: abdominal pain, constipation, hematemesis, hematochezia, melena, vomiting Genitourinary: ABSENT: dysuria, hematuria Musculoskeletal: ABSENT: joint swelling Integumentary: ABSENT: rash, wounds Neurological: PRESENT: frequent falls. ABSENT: abnormal gait, abnormal speech, confusion, dizziness, focal weakness, syncope Psychiatric: ABSENT: anxiety, depression, homidical ideation, suicidal ideation Endocrine: ABSENT: cold intolerance, heat intolerance, polydipsia, polyuria Hematologic/Lymphatic: ABSENT: easy bleeding, easy bruising Physical Exam Vital Signs: Temp Pulse Resp BP Pulse Ox 98.3 F 111 H 22 H 123/68 94 12/03/17 12:00 12/03/17 12:00 12/03/17 18:01 12/03/17 18:01 12/03/17 18:01 General appearance: PRESENT: mild distress - Mild tachypnea, obese, well- developed, well-nourished Head exam: PRESENT: atraumatic, normocephalic Eye exam: PRESENT: conjunctiva pink, EOMI, PERRLA. ABSENT: scleral icterus Ear exam: PRESENT: normal external ear exam Mouth exam: PRESENT: dry mucosa, tongue midline Neck exam: ABSENT: JVD, lymphadenopathy, thyromegaly, tracheal deviation Respiratory exam: PRESENT: clear to auscultation niall, symmetrical, tachypnea, unlabored. ABSENT: accessory muscle use, rales, rhonchi, wheezes Cardiovascular exam: PRESENT: RRR, +S1, +S2, tachycardia. ABSENT: diastolic murmur, rubs, systolic murmur Pulses: PRESENT: normal dorsalis pedis pul Vascular exam: PRESENT: normal capillary refill GI/Abdominal exam: PRESENT: normal bowel sounds, soft. ABSENT: distended, guarding, mass, organolmegaly, rebound, tenderness Rectal exam: PRESENT: deferred Extremities exam: PRESENT: full ROM. ABSENT: calf tenderness, clubbing, pedal edema Neurological exam: PRESENT: alert, awake, oriented to person, oriented to place , oriented to time, oriented to situation, CN II-XII grossly intact. ABSENT: motor sensory deficit Psychiatric exam: PRESENT: appropriate affect, normal mood. ABSENT: homicidal ideation, suicidal ideation Skin exam: PRESENT: dry, intact, rash - Macular plaques on extensor surface of lower extremity, warm. ABSENT: cyanosis Results Laboratory Results: 12/03/17 12/03/17 12/03/17 12:46 12:57 12:57 WBC 12.4 H Hgb 12.4 Hct 38.0 Plt Count 322 Sodium 133.9 L Potassium 3.6 Chloride 94 L Carbon Dioxide 23 Anion Gap 17 BUN 38 H Creatinine 1.43 H Glucose 327 H POC Glucose Calcium 9.1 Total Bilirubin 1.0 Direct Bilirubin 0.5 H AST 45 H ALT 46 Alkaline Phosphatase 252 H Creatine Kinase 27 L CK-MB (CK-2) Troponin I NT-Pro-B Natriuret Pep Total Protein 7.1 Albumin 3.8 Ur Specific Sheridan 1.028 Urine Glucose (UA) >=500 H Urine Urobilinogen 2.0 H Ur Leukocyte Esterase NEGATIVE Urine WBC (Auto) 2 U Hyaline Cast (Auto) 5 Urine Mucus (Auto) RARE Urine Ascorbic Acid 20 H 12/03/17 12/03/17 12/03/17 12:57 18:30 18:50 WBC Hgb Hct Plt Count Sodium Potassium Chloride Carbon Dioxide Anion Gap BUN Creatinine Glucose POC Glucose 223 H Calcium Total Bilirubin Direct Bilirubin AST ALT Alkaline Phosphatase Creatine Kinase CK-MB (CK-2) < 0.22 Troponin I 0.110 0.127 NT-Pro-B Natriuret Pep 7120 H Total Protein Albumin Ur Specific Sheridan Urine Glucose (UA) Urine Urobilinogen Ur Leukocyte Esterase Urine WBC (Auto) U Hyaline Cast (Auto) Urine Mucus (Auto) Urine Ascorbic Acid EKG Comments: Sinus tachycardia without acute ST segment changes Impressions: Chest X-Ray 12/03/17 12:24 IMPRESSION: NO SIGNIFICANT RADIOGRAPHIC FINDING IN THE CHEST. Lumbar Spine X-Ray 12/03/17 12:24 IMPRESSION: No lumbar compression deformity is identified. Lumbar Spine CT 12/03/17 14:54 IMPRESSION: No acute fracture or malalignment Pelvis X-Ray 12/03/17 15:51 IMPRESSION: NEGATIVE STUDY OF THE PELVIS. Chest/Abdomen CTA 12/03/17 16:00 IMPRESSION: NO PULMONARY EMBOLI. 14 MM SPICULATED NODULE WITHIN THE RIGHT MIDDLE LOBE SUSPICIOUS FOR NEOPLASTIC PROCESS. RECOMMEND BIOPSY AND/OR PET-CT. THERE IS A 4 MM DISC TEEN PULMONARY NODULE WHICH COULD REPRESENT A SATELLITE LESION. BILATERAL INDETERMINATE ADRENAL NODULES ABOVE. RECOMMEND DEDICATED ADRENAL CT OR MRI FOR COMPLETE CHARACTERIZATION. 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 Status: Imported from PACS Assessment & Plan - Diagnosis (1) Acute renal failure Qualifiers: Acute renal failure type: unspecified Qualified Code(s): N17.9 - Acute kidney failure, unspecified Is this a current diagnosis for this admission?: Yes Plan: Likely secondary to dehydration Will give gentle hydration and repeat creatinine. This also may be spurious secondary to patient's use of Bactrim which she was started on by orthopedics due to delayed wound closure and concern for possible wound healing issues. (2) Dehydration Is this a current diagnosis for this admission?: Yes Plan: Gentle hydration (3) Diabetes mellitus Qualifiers: Diabetes mellitus type: type 2 Diabetes mellitus complication status: with ophthalmic complications Diabetes mellitus complication detail: with other ophthalmic complication Diabetes mellitus terminal manager insulin use: with [facility] use Qualified Code(s): E11.39 - Type 2 diabetes mellitus with other diabetic ophthalmic complication; Z79.4 - computer terminal operator (current) use of insulin; Z79.4 - computer terminal operator (current) use of insulin; Z79.4 - computer terminal operator (current) use of insulin; Z79.4 - senior care (current) use of insulin Is this a current diagnosis for this admission?: Yes Plan: Patient is normally followed by Dr. Katherin Pinzon who is a golf ball inspector. Will defer any changes in her outpatient medication to her. At this time, will hold her metformin due to acute renal insufficiency and recent CTA. Continue glimepiride and insulin. Add Accu-Cheks and sliding scale insulin. Patient reports that she has "bleeding in 1 of her eyes" from her diabetes. She is being seen by ophthalmology as an outpatient for this. (4) Hypertension Qualifiers: Hypertension type: essential hypertension Qualified Code(s): I10 - Essential (primary) hypertension Is this a current diagnosis for this admission?: Yes Plan: Patient is on clonidine and lisinopril/hydrochlorthiazide as an outpatient. At this time due to her acute renal insufficiency and relative dehydration we will hold her lisinopril hydrochlorothiazide and continue with her clonidine. Will also hold patient's outpatient Lasix. (5) Lung mass Is this a current diagnosis for this admission?: Yes Plan: Patient has a 14 x 12 x 10 mm belated nodule in the right middle lobe and of a adjacent 4 mm pulmonary nodule as well as atelectasis. I feel the patient's shortness of breath is likely secondary in part to her atelectasis. I have discussed with patient that this is possibly a malignancy. Patient understands that much of her workup will need to be done as an outpatient. Patient does have a history of cancer on her nose, but she is unable to tell me what kind. Patient's mother of lung cancer (6) Elevated troponin Is this a current diagnosis for this admission?: Yes Plan: Patient has elevated troponin and we will initiate her on a heparin drip for this. There is been no change in her EKG. Unlikely to be AMI. Feel this is likely secondary to her underlying acute renal insufficiency. Will consult cardiology. Continue to monitor troponin. Patient will be on telemetry. (7) Obesity with serious comorbidity Qualifiers: Obesity type: due to excess calories Obesity classification: adult class 1 (BMI 30 - 34.9) Body mass index: BMI 31.0-31.9 Qualified Code(s): E66.09 - Other obesity due to excess calories; Z68.31 - Body mass index (BMI) 31.0-31.9, adult; Z68.31 - Body mass index (BMI) 31.0-31.9, adult Is this a current diagnosis for this admission?: Yes - Time Time Spent: 30 to 50 Minutes Medications reviewed and adjusted accordingly: Yes Anticipated discharge: Home with Homehealth Within: within 48 hours - Inpatient Certification Based on my medical assessment, after consideration of the patient's comorbidities, presenting symptoms, or acuity I expect that the services needed warrant INPATIENT care.: No I certify that my determination is in accordance with my understanding of Medicare's requirements for reasonable and necessary INPATIENT services [42 CFR 412.3e].: No Medical Necessity: Need For IV Fluids Post Hospital Care: D/C Director Of Reservations Documentation
[2017-12-03] MEDS ORDERED: METOPROLOL TARTRATE PF/INJ 5 MG/5 ML SDV IV ONE ×2 (22:53→23:05)
[2017-12-03] MEDS ORDERED: HEPARIN SOD (PORCINE) 1,000 UNIT/ML 10 ML VIAL IV PRN (23:46)
[2017-12-03] MEDS ORDERED: HUM INSULIN NPH/REG INSULIN HM 100 UNIT/1 ML 3 ML SUBCUT ONE (23:52)
--- NOTE | 2017-12-03 23:55 | Progress Note ---
Provider Note Provider Note: Contacted by patient nurse for HR 150. EKG reveals a-flutter 2:1 conduction block. Patient on heparin ggt and given PM metoprolol and a prn metoprolol dose. Likely cause of increased troponin I measurement. Patient asymptomatic through event. Continue to follow and monitor on telemetry.
[2017-12-04 01:01] LABS: PARTIAL THROMBOPLASTIN TIME 37.7 SEC (23.5-35.8); PROTHROMBIN TIME 13.9 SEC (11.4-15.4)
[2017-12-04 01:29] LABS: CREATINE KINASE MB 0.27 ng/mL (<4.55); TROPONIN I 0.086 ng/mL
[2017-12-04 03:07] LABS: APPEARANCE,URINE CLEAR; BILIRUBIN,URINE NEGATIVE (NEGATIVE); COLOR,URINE YELLOW; GLUCOSE, URINE 150 mg/dL (NEGATIVE); KETONES,URINE NEGATIVE (NEGATIVE); LEUKOCYTE ESTERASE,URINE NEGATIVE (NEGATIVE); NITRITE,URINE NEGATIVE (NEGATIVE); PROTEIN,URINE NEGATIVE (NEGATIVE); URINE SPECIFIC GRAVITY 1.049; UROBILINOGEN,URINE NEGATIVE mg/dL (<2.0)
[2017-12-04] MEDS: LANSOPRAZOLE 30 MG TAB.RAP.DR PO SCH (05:33)
[2017-12-04 06:58] LABS: HEMATOCRIT 33.4 % (36.0-47.0); HEMOGLOBIN 10.9 g/dL (12.0-15.5); MEAN CORPUSCULAR HEMOGLOBIN 28.6 pg (27.0-33.4); MEAN CORPUSCULAR HGB CONC 32.8 g/dL (32.0-36.0); MEAN CORPUSCULAR VOLUME 87 fl (80-97); PLATELET COUNT 313 10^3/uL (150-450); RED BLOOD COUNT 3.82 10^6/uL (3.72-5.28); RED CELL DISTRIBUTION WIDTH 15.3 % (11.5-14.0)
[2017-12-04 07:26] LABS: BLOOD UREA NITROGEN 50 mg/dL (7-20); CARBON DIOXIDE 24 mmol/L (22-30); CREATINE KINASE 23 U/L (30-135); GLUCOSE 117 mg/dL (75-110); MAGNESIUM 2.2 mg/dL (1.6-2.3); PHOSPHORUS 4.7 mg/dL (2.5-4.5); POTASSIUM 3.8 mmol/L (3.6-5.0); SODIUM 135.9 mmol/L (137-145)
[2017-12-04 07:30] LABS: CREATINE KINASE MB 0.98 ng/mL (<4.55)
[2017-12-04 07:36] LABS: TROPONIN I 0.141 ng/mL
[2017-12-04 07:38] LABS: ANION GAP 12 (5-19); CHLORIDE 100 mmol/L (98-107)
--- NOTE | 2017-12-04 07:50 | EKG REPORT ---
SEVERITY:- ABNORMAL ECG - A-FLUTTER W/ PREDOM 2:1 AV BLOCK, A-RATE 272 ABNRM R PROG, CONSIDER ASMI OR LEAD PLACEMENT NONSPECIFIC T ABNORMALITIES, LATERAL LEADS OLD INFERIOR DE : Confirmed by: Jayy Domingo MD 04-Dec-2017 07:50:09
--- NOTE | 2017-12-04 07:51 | EKG REPORT ---
SEVERITY:- ABNORMAL ECG - SINUS RHYTHM PROBABLE LVH WITH SECONDARY REPOL ABNRM BORDERLINE PROLONGED QT INTERVAL : Confirmed by: Jayy Domingo MD 04-Dec-2017 07:50:20
--- NOTE | 2017-12-04 08:48 | PROGRESS NOTE E ---
Progress Note NAME: CAPRICE KNOTT : 1945 AGE: 72Y DATE: 12/04/2017 ROOM: 528 SUBJECTIVE: The patient is currently sitting on the side of the bed. She is eating her breakfast. The patient states that she feels much better today than when she came in. The patient denies any nausea, vomiting. No diarrhea, shortness of breath, dizziness. No chest pain. No fevers, chills. The patient actually has asked to go home; however, the patient's kidney number is not much improved, and the patient does not voice any other concerns at this time other than I would like a regular diet. REVIEW OF SYSTEMS: Rest of review of systems is negative. MEDICATIONS: Medications have been reviewed. OBJECTIVE: GENERAL: The patient is a 72-year-old female who is awake, alert. She is oriented to person, place, time, and situation. She is verbal, conversational, does not appear to be distressed. VITAL SIGNS: Temperature is 98.2, pulse 81, respirations 16, blood pressure is 103/55, oxygen saturation is 93% on room air. SKIN: Warm and dry. No rash. She is not diaphoretic. HEENT: Pupils equal, round, reactive to light and accommodation. Conjunctiva is pink. There is no evidence of JVP. CARDIOVASCULAR SYSTEM: Heart is regular. There is no murmur or rub. CHEST: Clear, symmetrical, unlabored. ABDOMEN: Soft, nontender, nondistended. BACK: No CVA tenderness or sacral edema. EXTREMITIES: No clubbing, cyanosis, edema. PSYCHIATRIC: Appropriate affect. Pleasant mood. DIAGNOSTICS: Lab values are as follows: Hematology obtained on 12/04/2017: WBCs are 12.0, hemoglobin is 10.9, hematocrit is 33.4, platelet count is 313,000. Chemistry obtained on 12/04/2017: Sodium is 135, potassium 3.8, chloride is 100, carbon dioxide 24, BUN 50, creatinine is 1.81, glucose 117, calcium is 9.0, phosphorus 1.7, magnesium is 2.2. IMPRESSION AND PLAN: 1. ACUTE RENAL FAILURE. This appears to be due to the patient's poor intake as well as nephrotoxic medications. Will continue to hydrate, hold metformin as well as lisinopril, hydrochlorothiazide, and repeat chemistry in the a.m. and follow. 2. RAPID VENTRICULAR RESPONSE. Could be prompted by number 1. The patient's rate is much better controlled; however, she remains in atrial fibrillation. The patient is currently covered with heparin given her kidney function. Will consult Dr. Winslow with Cardiology and follow. 3. DIABETES MELLITUS TYPE 2. Will continue the patient's home medications as well as sliding scale coverage. However, will hold metformin. 4. HYPERTENSION. The patient's blood pressures are in an acceptable range, a little on the low side. Will continue to hold nephrotoxic medications and follow. 5. LUNG MASS. The patient has a right middle lobe mass that she was aware of and this can be continued to be worked up on an outpatient basis. The patient has no evidence of pneumonia. 6. TROPONIN LEAK SECONDARY TO RVR. Again, will consult Cardiology. 7. OBESITY WITH A BMI OF 31. Will encourage weight reduction. 8. STATUS POST ORIF ON THE LEFT OLECRANON WITH RADIAL HEAD ARTHROPLASTY. The patient was on outpatient Bactrim for the wound; however, it overall appears much improved. Do appreciate Orthopedic input. DISPOSITION: The patient is a FULL CODE. Pending patient's symptomatology and diagnostic findings, will re-evaluate in the a.m. The patient is inpatient telemetry as the patient's expected length of stay should surpass 2 midnights. Time spent on this followup including assessment, plan, physical examination, patient education, review of records, and specialty collaboration is 35 minutes. DICTATING PHYSICIAN: JUSTO RODRIGUEZ NP [id number] PHY#: [id number] ID: [id number] JOB#: [id number] ACCT: [id number] cc: >
[2017-12-04] MEDS ORDERED: HEPARIN SODIUM,PORCINE/D5W 25,000 UNIT/250 ML RTUINJ IV PRN (09:52)
[2017-12-04] MEDS ORDERED: HEPARIN SOD (PORCINE) 1,000 UNIT/ML 10 ML VIAL IV PRN (09:52)
[2017-12-04] MEDS: GLIMEPIRIDE 4 MG TABLET PO SCH ×2 (11:11→19:12)
[2017-12-04] MEDS: FAMOTIDINE 20 MG TABLET PO SCH ×2 (11:12→20:54)
[2017-12-04] MEDS: CLONIDINE HCL 0.2 MG TABLET PO SCH ×2 (11:12→20:53)
[2017-12-04] MEDS: DOCUSATE SODIUM 100 MG CAPSULE PO SCH ×2 (11:14→19:11)
[2017-12-04] MEDS: ASPIRIN 81 MG TABLET, ENT COATED PO SCH (11:14)
[2017-12-04] MEDS: INSULIN LISPRO 100 UNIT/ML 3 ML VIAL SUBCUT PRN (17:29)
--- NOTE | 2017-12-04 19:26 | XCELERA REPORT ---
[address] [address] Transthoracic Echocardiogram Report Name: CAPRICE KNOTT Age: 72 yrs Gender: Female : 1945 Patient Status: Inpatient Patient Location: [address] [place] [address] Study Date: 12/04/2017 10:46 AM Height: 61 in Weight: 167 lb BSA: 1.7 m2 Procedure: A complete two-dimensional transthoracic echocardiogram was performed (2D, M-mode, spectral and color flow Doppler). The study was technically difficult with many images being suboptimal in quality. Reason For Study: elevated tpi Ordering Physician: STEPHANIA ARAYA Performed By: Yenifer Malcolm Interpretation Summary Left ventricular systolic function is borderline reduced. There is borderline concentric left ventricular hypertrophy. The left ventricle is grossly normal size. Doppler measurements suggest pseudonormalized left ventricular relaxation, which is associated with grade II/IV or mild to moderate diastolic dysfunction Regional wall motion abnormalities cannot be excluded due to limited visualization. The right ventricle is borderline dilated. The right ventricular systolic function is normal. Borderline right atrial enlargement. The left atrium is mildly dilated. There is a trace to mild amount of mitral regurgitation There is no mitral valve stenosis. There is no aortic valve stenosis No aortic regurgitation is present. There is a mild amount of tricuspid regurgitation There is mild to moderate pulmonary hypertension by echo Right ventricular systolic pressure is estimated to be elevated at 40- 50mmHg. The aortic root is not well visualized. The inferior vena cava appeared normal and decreased > 50% with respiration (RAP 5-10 mmHg) There is no pericardial effusion. MMode/2D Measurements & Calculations RVDd: 2.7 cm LVIDd: 4.4 cm FS: 37.4 % Ao root diam: 2.5 cm IVSd: 0.89 cm LVIDs: 2.8 cm EDV(Teich): 87.5 ml LVPWd: 1.0 cm ESV(Teich): 28.4 ml Ao root area: 5.0 cm2 EF(Teich): 67.6 % LA dimension: 4.0 cm Doppler Measurements & Calculations MV E max jhonatan: MV P1/2t max jhonatan: Ao V2 max: LV V1 max P.2 cm/sec 101.7 cm/sec 154.7 cm/sec 4.3 mmHg MV A max jhonatan: MV P1/2t: 65.9 msec Ao max PG: LV V1 max: 102.2 cm/sec 9.6 mmHg 103.7 cm/sec MV E/A: 1.0 MVA(P1/2t): 3.3 cm2 MV dec slope: 452.2 cm/sec2 PA V2 max: TR max jhonatan: 76.0 cm/sec 324.4 cm/sec PA max PG: TR max P.1 mmHg 2.3 mmHg Left Ventricle The left ventricle is grossly normal size. There is borderline concentric left ventricular hypertrophy. Left ventricular systolic function is borderline reduced. Doppler measurements suggest pseudonormalized left ventricular relaxation, which is associated with grade II/IV or mild to moderate diastolic dysfunction. Regional wall motion abnormalities cannot be excluded due to limited visualization. Right Ventricle The right ventricle is borderline dilated. There is normal right ventricular wall thickness. The right ventricular systolic function is normal. Atria Borderline right atrial enlargement. The left atrium is mildly dilated. Interarterial septum not well visualized and not well dopplered. Cannot comment on ASD/PFO presence. Mitral Valve The mitral valve leaflets are sclerotic and show some degree of functional abnormality. There is no mitral valve stenosis. There is a trace to mild amount of mitral regurgitation. Aortic Valve The aortic valve is mildly calcified. There is no aortic valve stenosis. No aortic regurgitation is present. Tricuspid Valve The tricuspid valve is not well visualized, but is grossly normal. There is no tricuspid stenosis. There is a mild amount of tricuspid regurgitation. There is mild to moderate pulmonary hypertension by echo. Right ventricular systolic pressure is estimated to be elevated at 40-50mmHg. Pulmonic Valve The pulmonic valve is not well visualized. Great Vessels The aortic root is not well visualized. The inferior vena cava appeared normal and decreased > 50% with respiration (RAP 5-10 mmHg). Effusions There is no pericardial effusion. : STEPHANIA ARAYA > June Winslow
[2017-12-04] MEDS: SERTRALINE HCL 50 MG TABLET PO SCH (20:52)
[2017-12-04] MEDS: METOPROLOL SUCCINATE 50 MG TAB.SR.24H PO SCH (20:53)
[2017-12-04] MEDS: ATORVASTATIN CALCIUM 40 MG TABLET PO SCH (20:53)
[2017-12-05] MEDS: LANSOPRAZOLE 30 MG TAB.RAP.DR PO SCH (05:59)
[2017-12-05] MEDS: INSULIN LISPRO 100 UNIT/ML 3 ML VIAL SUBCUT PRN ×4 (06:00→22:13)
[2017-12-05 06:07] LABS: ALANINE AMINOTRANSFERASE 48 U/L (9-52); ALBUMIN 2.6 g/dL (3.5-5.0); ALKALINE PHOSPHATASE 192 U/L (38-126); ANION GAP 13 (5-19); ASPARTATE AMINO TRANSFERASE 36 U/L (14-36); BILIRUBIN,DIRECT 0.3 mg/dL (0.0-0.4); BILIRUBIN,TOTAL 0.7 mg/dL (0.2-1.3); BLOOD UREA NITROGEN 56 mg/dL (7-20); CALCIUM 8.2 mg/dL (8.4-10.2); CARBON DIOXIDE 19 mmol/L (22-30); CHLORIDE 101 mmol/L (98-107); GLUCOSE 233 mg/dL (75-110); MAGNESIUM 2.2 mg/dL (1.6-2.3); POTASSIUM 3.8 mmol/L (3.6-5.0); SODIUM 133.3 mmol/L (137-145); TOTAL PROTEIN 5.4 g/dL (6.3-8.2)
[2017-12-05] MEDS: DOCUSATE SODIUM 100 MG CAPSULE PO SCH ×2 (09:34→17:51)
[2017-12-05] MEDS: GLIMEPIRIDE 4 MG TABLET PO SCH ×2 (09:34→17:51)
[2017-12-05] MEDS: CLONIDINE HCL 0.2 MG TABLET PO SCH ×2 (09:34→21:21)
[2017-12-05] MEDS: FAMOTIDINE 20 MG TABLET PO SCH ×2 (09:34→21:22)
[2017-12-05] MEDS: ASPIRIN 81 MG TABLET, ENT COATED PO SCH (09:34)
--- NOTE | 2017-12-05 11:53 | PROGRESS NOTE E ---
Progress Note NAME: CAPRICE KNOTT : 1945 AGE: 72Y DATE: 12/05/2017 ROOM: 528 SUBJECTIVE: The patient is currently sitting out of bed to the bedside chair. Her legs are elevated. The patient states that she feels overall much better in comparison to when she came in. The patient denies any nausea, vomiting, diarrhea. No shortness of breath, dizziness, chest pain. No fevers or chills. The patient does admit to some daytime sleepiness. The patient does not voice any other concerns at this time. REVIEW OF SYSTEMS: The rest of the review of systems is negative. MEDICATIONS: Medications have been reviewed. OBJECTIVE: GENERAL: The patient is a 72-year-old female who is awake, alert, and oriented to person, place, time, and situation. She is verbal, conversational, does not appear to be in any acute distress. VITAL SIGNS: As follows: Temperature is 97.8, pulse 68, respirations 17, blood pressure is 106/88, oxygen saturation is 99% on room air. SKIN: Warm and dry. No rash. She is not diaphoretic. HEENT: Pupils equal, round, and reactive to light and accommodation. Conjunctiva is pink. There is no evidence of JVP. CARDIOVASCULAR: Heart is regular. There is no murmur or rub. CHEST: Clear, symmetrical, unlabored but diminished. ABDOMEN: Obese, soft, no area of focal tenderness. EXTREMITIES: No clubbing or cyanosis. The patient does have trace bilateral lower extremity edema. PSYCHIATRIC: Appropriate affect. Very pleasant mood. DIAGNOSTICS: Lab values are as follows. Hematology obtained on 12/04/2017: WBCs are 12.0, hemoglobin is 10.9, hematocrit is 33.4, platelet count is 313,000. Chemistry obtained on 12/05/2017: Sodium is 133, potassium 3.8, chloride is 101, carbon dioxide is 19, BUN 56, creatinine is 1.91, glucose 233, calcium is 8.2, magnesium is 2.2, bilirubin is 0.76, AST 36, ALT is 48, alk phos 192, total protein is 5.4, albumin 2.6. IMPRESSION AND PLAN: 1. ACUTE RENAL FAILURE. Uncertain of the exact etiology of this. The patient did apparently get contrast and was on lisinopril and hydrochlorothiazide in an outpatient basis. It appears the patient's baseline creatinine is around 1. In spite of hydration, the patient's creatinine has trended up. The patient does have some edema in her lower extremities but no overt evidence of congestion. She does not appear to have pulmonary edema. The patient does not have any protein in her urine but the patient is hyponatremic and hypoalbuminemic. Will consult Nephrology and obtain renal ultrasound and will hold fluids for the moment given the patient's lower extremity edema and that the patient feels very well. The patient was also on metformin. The patient was also on Bactrim for her elbow. 2. ATRIAL FIBRILLATION, RAPID VENTRICULAR RESPONSE. Management as per Cardiology. 3. MILD DIASTOLIC DYSFUNCTION. The patient does not appear to have any overt evidence of overload. 4. DIABETES MELLITUS, TYPE 2. Will continue her home insulin as well as sliding-scale coverage. Will continue to hold her metformin. 5. HYPERTENSION. The patient's blood pressures are in an acceptable range. It appears that for the patient they are a little on the lower side as her medications are being held. 6. LUNG MASS. The patient was aware of this mass and workup is to be ongoing on an outpatient basis. She has no evidence of a pneumonia. 7. TROPONIN LEAK SECONDARY TO RVR. Management is per Cardiology. 8. STATUS POST ORIF OF THE LEFT OLECRANON WITH RADIAL HEAD ARTHROPLASTY. Do appreciate Orthopedic input. 9. OBESITY WITH BMI 31. DISPOSITION: THE PATIENT IS A FULL CODE. Pending the patient's symptomatology and diagnostic findings, will re-evaluate in the a.m. Time spent on this followup, including assessment/plan, physical examination, patient education, review of records and specialty collaboration, is 25 minutes. DICTATING PHYSICIAN: JUSTO RODRIGUEZ NP [id number] PHY#: [id number] ID: [id number] JOB#: [id number] ACCT: [id number] cc: >
[2017-12-05] MEDS ORDERED: FUROSEMIDE INJ/PF 40 MG/4 ML SDV IV ONE (17:58)
--- NOTE | 2017-12-05 17:58 | PDOC CONSULTATION ---
Consultation Consult Date: 12/05/17 Attending physician:: JUSTO RODRIGUEZ Consult reason:: I was asked by Justo Rodriguez NP to see the patient because of worsening kidney function. History of Present Illness Admission Date/PCP: 12/04/17 07:59 KATHERIN SCHRADER MD History of Present Illness: CAPRICE KNOTT is a 72 year old female with a PMH of DM, HTN, HLD, depression who presents with shortness of breath. Patient reports several days of shortness of breath. She reports that she fell at home after having some dizziness and hurt her lower back but did not lose consciousness. She does report that she has had some soft stool today. She reports that she has had some loose stool over the past week. She reports that she has had a decreased appetite, not eating solids for several days but drinking fluids. She reports that she has no cough and denies any sputum production. She does state that she had a fever of up to 101 several days ago and took Tylenol approximately 2 days ago. He had an episode of vomiting for 1 day on November 28. She does report some chest pressure that she reports is better with movement. CTA done in the emergency department reveals a spiculated lung mass with associated nodule. She was admitted to the hospitalist service for acute renal failure. This history was reviewed and confirmed. Today the patient said that she is feeling much better. She denies any more chest pressure and her breathing is much better. She denies any more diarrhea, nausea nor vomiting. Her appetite is better and she is eating better. She has not had any fevers since she was here in the hospital. She was given some IV fluids since admission and is currently discontinued. She has at least +2500 mL of intake but we do not know her urine output since is not being measured. She was also given a dose of ketorolac on admission. Upon admission the patient has a BUN of 38 and creatinine of 1.43 with estimated GFR of 36. Today she has a BUN of 56 and creatinine 1.91 with estimated GFR of 26. Back in October 15, 2017 she had a BUN of 29 and creatinine of 1.04 with estimated GFR of 52. Her CO2 is mildly low at 19. So far her potassium is okay but she has mild hyponatremia with sodium of 133. She is scheduled to have a kidney ultrasound is currently pending. She had an echocardiogram yesterday which showed borderline in systolic ejection fraction, concentric LVH and grade 2/4 mild to moderate diastolic dysfunction with mild to moderate pulmonary hypertension. Patient denies any cardiac issues. She denies any previous kidney problems no history of kidney stones. She admits having leg swelling at home but she confirms that her swelling today is worse than baseline. She claims that she is urinating and is emptying her bladder while here in the hospital. We did a bladder scan and it measures 278 mL of urine in the bladder. Nurse asked her to urinate and she was able to urinate about 275 mL. Past Medical History Cardiac Medical History: Reports: Hyperlipidemia, Hypertension-primary Endocrine Medical History: Reports: Diabetes Mellitus Type 2, Obesity GI Medical History: Reports: Gastroesophageal Reflux Disease, Other - Cholelithiasis, refused surgery Musculoskeltal Medical History: Reports: Other - Recent history of left forearm fracture and shattered elbow Psychiatric Medical History: Reports: Depression Past Surgical History Past Surgical History: Reports: Orthopedic Surgery - Surgery for left forearm fracture and elbow fracture, Other - Skin cancer surgery on her nose, D&C in 1977, pilonidal cyst excision Social History Information Source: Patient Lives with: Alone Smoking Status: Never Smoker Frequency of Alcohol Use: None Hx Recreational Drug Use: No Drugs: None Hx Prescription Drug Abuse: No - Advance Directive Resuscitation Status: Full Code Family History Family History: CAD - Brother and father, Chronic Kidney Disease - Uncle and aunt, DM - Sister and 3 brothers, Malignancy - Lung cancer in her mother Parental Family History Reviewed: Yes Children Family History Reviewed: Yes Sibling(s) Family History Reviewed.: Yes Medication/Allergy Home Medications: Acetaminophen/Diphenhydramine [Tylenol Pm Ex-Strength Caplet] 2 tab PO HSP PRN 10/15/17 Aspirin [Lo-Dose Aspirin EC] 81 mg PO DAILY 10/15/17 Clonidine HCl 0.2 mg PO Q12 10/15/17 Glimepiride 4 mg PO BID 10/15/17 Insulin Aspart Prot/Insuln Asp [Novolog Mix 70-30 Flexpen Syrn] 25 units SUBCUT QHS 10/15/17 Insulin Aspart Prot/Insuln Asp [Novolog Mix 70-30 Flexpen Syrn] 45 units SUBCUT QAM 10/15/17 Lisinopril/Hydrochlorothiazide [Lisinopril-Hctz 20-25 mg Tab] 1 tab PO DAILY Melatonin 10 mg PO QHS 10/15/17 Metformin HCl 1,000 mg PO BIDBS 10/15/17 Metoprolol Succinate 100 mg PO QHS 10/15/17 Multivitamin [Multivitamins] 1 cap PO DAILY 10/15/17 Omeprazole 40 mg PO DAILY 10/15/17 Pravastatin Sodium 20 mg PO QHS 10/15/17 Sertraline HCl 100 mg PO QHS 10/15/17 Furosemide [Lasix 40 mg Tablet] 40 mg PO Q2D 12/04/17 Allergies/Adverse Reactions: No Known Allergies Allergy (Verified 12/03/17 11:51) Review of Systems All systems: reviewed and no additional remarkable complaints except as stated Review of Systems: Constitutional: ABSENT: chills, fatigue, fever(s), headache(s), weight gain, weight loss Eyes: ABSENT: visual disturbances Ears: ABSENT: hearing changes Cardiovascular: ABSENT: chest pain, dyspnea on exertion, orthropnea, palpitations; admits edema Respiratory: ABSENT: cough, dyspnea, hemoptysis Gastrointestinal: ABSENT: abdominal pain, constipation, diarrhea, hematemesis, hematochezia, nausea, vomiting Genitourinary: ABSENT: dysuria, hematuria Musculoskeletal: ABSENT: joint swelling Integumentary: ABSENT: rash, wounds Neurological: ABSENT: abnormal gait, abnormal speech, confusion, dizziness, focal weakness, numbness, syncope Psychiatric: ABSENT: anxiety, depression Endocrine: ABSENT: cold intolerance, heat intolerance, polydipsia, polyuria Hematologic/Lymphatic: ABSENT: easy bleeding, easy bruising, lymphadenopathy Physical Exam Vital Signs: Temp Pulse Resp BP Pulse Ox 97.9 F 66 18 116/61 100 12/05/17 15:58 12/05/17 15:58 12/05/17 15:58 12/05/17 15:58 12/05/17 15:58 Intake & Output 12/04/17 12/05/17 12/06/17 06:59 06:59 06:59 Intake Total 2808 Balance 2808 Weight 75.9 kg Exam: General appearance: no acute distress, cooperative, well-developed, well- nourished Head exam: PRESENT: atraumatic, normocephalic Eye exam: PRESENT: Conjunctiva pale, EOMI, PERRLA. ABSENT: conjunctival injection, scleral icterus Mouth exam: PRESENT: moist, neck supple, tongue midline Neck exam: PRESENT: full ROM. ABSENT: carotid bruit, JVD, lymphadenopathy, thyromegaly Respiratory exam: PRESENT: Diminished to auscultation bilaterally. Bilateral basal crackles ABSENT: Rhonchi, stridor, wheezes Cardiovascular exam: PRESENT: RRR, +S1, +S2. ABSENT: systolic murmur Pulses: PRESENT: normal radial pulses, normal dorsalis pedis pulses GI/Abdominal exam: PRESENT: normal bowel sounds, soft. ABSENT: guarding, mass, tenderness Rectal exam: deferred Extremities exam: PRESENT: full ROM. Grade 1 bilateral lower extremity pitting edema ABSENT: calf tenderness Musculoskeletal: PRESENT: full ROM. ABSENT: deformity Neurological exam: PRESENT: alert, Awake, Oriented to person, Oriented to place , Oriented to time, reflexes normal, CN II-XII grossly intact. ABSENT: motor sensory deficit Psychiatric exam: PRESENT: appropriate affect, normal mood. ABSENT: homicidal ideation, suicidal ideation Skin exam: PRESENT: intact, dry, warm. ABSENT: rash Results Laboratory Results: 12/05/17 04:50 12/05/17 04:50 Sodium 133.3 L Potassium 3.8 Chloride 101 Carbon Dioxide 19 L Anion Gap 13 BUN 56 H Creatinine 1.91 H Est GFR ( Amer) 31 L Est GFR (Non-Af Amer) 26 L Glucose 233 H Calcium 8.2 L Magnesium 2.2 Total Bilirubin 0.7 AST 36 ALT 48 Alkaline Phosphatase 192 H Total Protein 5.4 L Albumin 2.6 L Impressions: Chest X-Ray 12/03/17 12:24 IMPRESSION: NO SIGNIFICANT RADIOGRAPHIC FINDING IN THE CHEST. Lumbar Spine X-Ray 12/03/17 12:24 IMPRESSION: No lumbar compression deformity is identified. Lumbar Spine CT 12/03/17 14:54 IMPRESSION: No acute fracture or malalignment Pelvis X-Ray 12/03/17 15:51 IMPRESSION: NEGATIVE STUDY OF THE PELVIS. Chest/Abdomen CTA 12/03/17 16:00 IMPRESSION: NO PULMONARY EMBOLI. 14 MM SPICULATED NODULE WITHIN THE RIGHT MIDDLE LOBE SUSPICIOUS FOR NEOPLASTIC PROCESS. RECOMMEND BIOPSY AND/OR PET-CT. THERE IS A 4 MM DISC TEEN PULMONARY NODULE WHICH COULD REPRESENT A SATELLITE LESION. BILATERAL INDETERMINATE ADRENAL NODULES ABOVE. RECOMMEND DEDICATED ADRENAL CT OR MRI FOR COMPLETE CHARACTERIZATION. 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 Assessment & Plan - Diagnosis (1) Acute kidney injury Is this a current diagnosis for this admission?: Yes Plan: Patient does not seem to be oliguric. She does not have any proteinuria no hematuria. This could be secondary to multiple prerenal factors which include initial dehydration, contrast, medications including 1 dose of ketorolac, lisinopril. Currently the patient is actually clinically hypervolemic and does not appear to be volume depleted. Kidney ultrasound is currently pending. She did not have any urinary retention sure about bladder scan. I will give the patient a dose of Lasix 40 mg IV 1 dose today. Patient was taking Lasix 80 mg every other day at home which she has not had since admission. Continue to monitor kidney function. He does not need any renal replacement therapy. Continue to hold metformin, lisinopril, and other nephrotoxic medications. (2) Hyponatremia Is this a current diagnosis for this admission?: Yes Plan: This could be due to a combination previous intake of hydrochlorothiazide at home and current hypervolemic state. Hold hydrochlorothiazide. (3) Metabolic acidosis Is this a current diagnosis for this admission?: Yes (4) Hyperphosphatemia Is this a current diagnosis for this admission?: Yes Plan: Due to AK I. (5) Anemia Is this a current diagnosis for this admission?: Yes (6) Diabetes mellitus Qualifiers: Diabetes mellitus type: type 2 Diabetes mellitus complication status: with ophthalmic complications Diabetes mellitus complication detail: with other ophthalmic complication Diabetes mellitus early childhood aide classroom insulin use: with halfway use Qualified Code(s): E11.39 - Type 2 diabetes mellitus with other diabetic ophthalmic complication; Z79.4 - correction (current) use of insulin; Z79.4 - correction (current) use of insulin; Z79.4 - investigative writer (current) use of insulin; Z79.4 - correction (current) use of insulin Is this a current diagnosis for this admission?: Yes (7) Hypertension Qualifiers: Hypertension type: essential hypertension Qualified Code(s): I10 - Essential (primary) hypertension Is this a current diagnosis for this admission?: Yes Plan: Controlled. (8) Lung mass Is this a current diagnosis for this admission?: Yes (9) Obesity with serious comorbidity Qualifiers: Obesity type: due to excess calories Obesity classification: adult class 1 (BMI 30 - 34.9) Body mass index: BMI 31.0-31.9 Qualified Code(s): E66.09 - Other obesity due to excess calories; Z68.31 - Body mass index (BMI) 31.0-31.9, adult; Z68.31 - Body mass index (BMI) 31.0-31.9, adult Is this a current diagnosis for this admission?: Yes - Notes Notes: Thank you very much for this consultation. I will follow the patient with you. - Time Time Spent: Greater than 70 Minutes
[2017-12-05] MEDS: ATORVASTATIN CALCIUM 40 MG TABLET PO SCH (21:20)
[2017-12-05] MEDS: METOPROLOL SUCCINATE 50 MG TAB.SR.24H PO SCH (21:22)
[2017-12-05] MEDS: SERTRALINE HCL 50 MG TABLET PO SCH (21:23)
[2017-12-06 05:33] LABS: HEMATOCRIT 29.2 % (36.0-47.0); HEMOGLOBIN 9.5 g/dL (12.0-15.5); MEAN CORPUSCULAR HEMOGLOBIN 28.9 pg (27.0-33.4); MEAN CORPUSCULAR HGB CONC 32.6 g/dL (32.0-36.0); MEAN CORPUSCULAR VOLUME 89 fl (80-97); PLATELET COUNT 338 10^3/uL (150-450); RED BLOOD COUNT 3.29 10^6/uL (3.72-5.28); RED CELL DISTRIBUTION WIDTH 15.1 % (11.5-14.0); WHITE BLOOD COUNT 6.9 10^3/uL (4.0-10.5)
[2017-12-06 05:52] LABS: ANION GAP 14 (5-19); BLOOD UREA NITROGEN 44 mg/dL (7-20); CALCIUM 8.6 mg/dL (8.4-10.2); CARBON DIOXIDE 22 mmol/L (22-30); CHLORIDE 102 mmol/L (98-107); GLUCOSE 197 mg/dL (75-110); MAGNESIUM 2.2 mg/dL (1.6-2.3); POTASSIUM 4.6 mmol/L (3.6-5.0); SODIUM 137.5 mmol/L (137-145)
[2017-12-06] MEDS: LANSOPRAZOLE 30 MG TAB.RAP.DR PO SCH (06:42)
--- NOTE | 2017-12-06 08:15 | RADIOLOGY REPORT (SQ) ---
EXAM DESCRIPTION: U/S RETROPERITON (RENAL/AORTA) COMPLETED DATE/TIME: 12/06/2017 7:06 am REASON FOR STUDY: ARF R06.09 OTHER FORMS OF DYSPNEA COMPARISON: None. TECHNIQUE: Dynamic and static grayscale images acquired of the kidneys and bladder and recorded on P ACS. Additional selected color Doppler and spectral images recorded. LIMITATIONS: None. FINDINGS: RIGHT KIDNEY: Normal size. Normal echogenicity. No solid or suspicious masses. No hydronep hrosis. No calcifications. LEFT KIDNEY: The left kidney measures 10.4 cm in length. There is just under a 2 cm lesion slightly hypoechoic in the superior pole. This most likely represents a solid lesion there is vascular flow noted. Correlation with contrasted CT is recommended. BLADDER: No masses. OTHER FINDINGS: No other significant finding. IMPRESSION: Indeterminate approximately 2 cm lesion in the superior pole the left kidney. Recommend contrasted CT for further evaluation. TECHNICAL DOCUMENTATION: JOB ID: [id number] [employer] All Rights Reserved
[2017-12-06] MEDS: DOCUSATE SODIUM 100 MG CAPSULE PO SCH ×2 (09:59→18:24)
[2017-12-06] MEDS: GLIMEPIRIDE 4 MG TABLET PO SCH ×2 (09:59→18:24)
[2017-12-06] MEDS: FAMOTIDINE 20 MG TABLET PO SCH ×2 (09:59→22:09)
[2017-12-06] MEDS: CLONIDINE HCL 0.2 MG TABLET PO SCH ×2 (09:59→22:08)
[2017-12-06] MEDS: ASPIRIN 81 MG TABLET, ENT COATED PO SCH (09:59)
--- NOTE | 2017-12-06 10:57 | PROGRESS NOTE E ---
Progress Note NAME: CAPRICE KNOTT : 1945 AGE: 72Y DATE: 12/06/2017 ROOM: 528 SUBJECTIVE: The patient is currently out of bed to the bedside chair. She states that she feels overall much better today. She denies any nausea, vomiting, diarrhea. No shortness of breath, dizziness, chest pain. No fevers or chills. The patient has been afebrile. Blood pressure has been in a good range. The patient does not voice any other concerns at this time. REVIEW OF SYSTEMS: The rest of the review of systems is negative. MEDICATIONS: Medications have been reviewed. OBJECTIVE: GENERAL: The patient is a 72-year-old female who is awake, alert, and oriented to person, place, time, and situation. She is verbal, conversational, ambulatory. Does not appear to be in any acute distress. VITAL SIGNS: As follows: Temperature is 97.9, pulse is 57, respirations 17, blood pressure is 127/54, oxygen saturation is 100% on room air. SKIN: Warm and dry. No rash. She is not diaphoretic. HEENT: Pupils equal, round, and reactive to light and accommodation. Conjunctivae pink. There is no evidence of JVP. CARDIOVASCULAR: Heart is regular. There is no murmur or rub. CHEST: Clear, symmetrical, unlabored. ABDOMEN: Soft, nontender, nondistended. BACK: No CVA tenderness or sacral edema. EXTREMITIES: No clubbing, cyanosis, edema. Trace edema from yesterday appears overall improved. DIAGNOSTICS: Lab values are as follows. Hematology obtained on 12/06/2017: WBCs are 6.9, hemoglobin is 9.5, hematocrit is 29.2, platelet count is 338,000. Chemistry obtained on 12/06/2017: Sodium is 137, potassium 4.6, chloride is 102, carbon dioxide is 22, BUN 44, creatinine is 1.45, glucose 194, calcium is 8.6, magnesium is 2.2. IMPRESSION AND PLAN: 1. ACUTE RENAL FAILURE. DO APPRECIATE DR. MATTSON'S INPUT ON THIS. Does appear that this did improve with diuresis. Will continue this and continue to hold nephrotoxic medications and follow. 2. TACHYCARDIA. THIS HAS BEEN REVIEWED BY DR. BOURNE; NO EVIDENCE OF AFIB, AFLUTTER. Anticoagulation has been discontinued. Do appreciate cardiology's input on this. Will continue beta harvey. 3. MILD DIASTOLIC DYSFUNCTION. THE PATIENT DID APPEAR SLIGHTLY OVERLOADED, BUT OVERALL MUCH IMPROVED. 4. DIABETES MELLITUS, TYPE 2. Will continue her home medicines as well as sliding-scale coverage. Continue to hold metformin. 5. HYPERTENSION. BLOOD PRESSURES IN ACCEPTABLE RANGE. Will continue the patient's home medications. 6. LUNG MASS. Given the findings and the patient's medical condition, will go ahead and consult Dr. Sol with oncology and follow. 7. TROPONIN LEAK. Do appreciate cardiology input. 8. STATUS POST ORIF ON THE LEFT OLECRANON WITH RADIAL HEAD ARTHROPLASTY. Do appreciate orthopedic input. 9. OBESITY. Will continue to encourage weight reduction. DISPOSITION: The patient is a FULL CODE. Pending the patient's symptomatology and diagnostic findings, will re-evaluate in the a.m. Time spent on this followup, including assessment, plan, physical examination, patient education, review of records and specialty collaboration, is 35 minutes. DICTATING PHYSICIAN: JSUTO RODRIGUEZ NP [id number] PHY#: [id number] ID: [id number] JOB#: [id number] ACCT: [id number] cc: >
--- NOTE | 2017-12-06 11:44 | PDOC PROGRESS REPORT ---
Subjective Progress Note for:: 12/05/17 Subjective:: Patient seems to be doing better with gradual improvement. Pt is denying any chest arm or neck discomfort. Patient denying any PND, orthopnea. Patient denied any sustained palpitations, dizziness, syncope, near syncope. Patient denying any fever chills. Patient denying any other significant discomfort. Patient is maintaining sinus rhythm. Intermittent sinus tachycardia noted Review of systems: Rest review of systems negative. Medications: Medications have been reviewed. Reason For Visit: ARF,RVR Physical Exam Vital Signs: Temp Pulse Resp BP Pulse Ox 97.9 F 66 18 116/61 100 12/05/17 15:58 12/05/17 15:58 12/05/17 15:58 12/05/17 15:58 12/05/17 15:58 Intake & Output 12/04/17 12/05/17 12/06/17 06:59 06:59 06:59 Intake Total 2808 799 Balance 2808 799 Weight 75.9 kg Exam: GENERAL: well-nourished and in no acute distress. Alert and oriented x3 HEAD: Atraumatic, normocephalic. EYES: Pupils equal round and reactive to light, extraocular movements intact, sclera anicteric, conjunctiva are normal. ENT: TMs normal, nares patent, oropharynx clear without exudates. Moist mucous membranes. No oral ulcerations or bleeding gums noted NECK: supple without lymphadenopathy. Trachea is central. No cervical or axillary lymphadenopathy noted. Carotids are 2+, JVD WNL LUNGS: Respiration seems nonlabored, no significant accessory muscle action noted. Breath sounds clear to auscultation bilaterally and equal noted. No wheezes rales or rhonchi noted. No significant dullness noted on percussion. CHEST: Palpation of the chest wall shows no significant chest wall tenderness. No other significant abnormalities noted. 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 ABDOMEN: Soft, no significant tenderness appreciated, normoactive bowel sounds. No guarding, no rebound. No rigidity noted . No masses appreciated. EXTREMITIES: Pedal pulses are 1-2+, no calf tenderness noted. No clubbing or cyanosis.trace to 1+ pedal edema noted NEUROLOGICAL: Focused neurological exam showed no significant neurologic deficit. Normal speech, no focal weakness appreciated. PSYCH: Normal mood, normal affect. Judgment and insight within normal limits. SKIN: No significant ecchymosis, rash, ulcerations or signs of pruritus noted. MUSCULOSKELETAL EXAM: No significant joint swelling noted. Results Laboratory Results: 12/05/17 04:50 12/05/17 04:50 Sodium 133.3 L Potassium 3.8 Chloride 101 Carbon Dioxide 19 L Anion Gap 13 BUN 56 H Creatinine 1.91 H Est GFR ( Amer) 31 L Est GFR (Non-Af Amer) 26 L Glucose 233 H Calcium 8.2 L Magnesium 2.2 Total Bilirubin 0.7 AST 36 ALT 48 Alkaline Phosphatase 192 H Total Protein 5.4 L Albumin 2.6 L EKG Comments: Telemetry strips reviewed shows patient maintaining sinus rhythm. Impressions: Chest X-Ray 12/03/17 12:24 IMPRESSION: NO SIGNIFICANT RADIOGRAPHIC FINDING IN THE CHEST. Lumbar Spine X-Ray 12/03/17 12:24 IMPRESSION: No lumbar compression deformity is identified. Lumbar Spine CT 12/03/17 14:54 IMPRESSION: No acute fracture or malalignment Pelvis X-Ray 12/03/17 15:51 IMPRESSION: NEGATIVE STUDY OF THE PELVIS. Chest/Abdomen CTA 12/03/17 16:00 IMPRESSION: NO PULMONARY EMBOLI. 14 MM SPICULATED NODULE WITHIN THE RIGHT MIDDLE LOBE SUSPICIOUS FOR NEOPLASTIC PROCESS. RECOMMEND BIOPSY AND/OR PET-CT. THERE IS A 4 MM DISC TEEN PULMONARY NODULE WHICH COULD REPRESENT A SATELLITE LESION. BILATERAL INDETERMINATE ADRENAL NODULES ABOVE. RECOMMEND DEDICATED ADRENAL CT OR MRI FOR COMPLETE CHARACTERIZATION. 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 Assessment & Plan - Diagnosis (1) Cardiac dysrhythmia Qualifiers: Arrhythmia type: unspecified cardiac arrhythmia Qualified Code(s): I49.9 - Cardiac arrhythmia, unspecified Is this a current diagnosis for this admission?: Yes (2) Congestive heart failure (CHF) Qualifiers: Congestive heart failure type: diastolic Congestive heart failure chronicity: acute Qualified Code(s): I50.31 - Acute diastolic (congestive) heart failure Is this a current diagnosis for this admission?: Yes (3) Lung mass Is this a current diagnosis for this admission?: Yes (4) Back pain at L4-L5 level Is this a current diagnosis for this admission?: Yes (5) Chronic kidney disease Qualifiers: Chronic kidney disease stage: stage 2 (mild) Qualified Code(s): N18.2 - Chronic kidney disease, stage 2 (mild) Is this a current diagnosis for this admission?: Yes - Notes Notes: Revew of all EKG and Rhthm strips shows no definite A Fib or Flutter. No chr anticoagulation for this false diagnosis. Troponin I elevation: Exact etiology not. Have ordered a 2D echo. Etiology could be supply demand mismatch from tachyarrhythmias in setting of chronic kidney disease and CHF. Ischemia evaluation can be considered but patient currently not experiencing any chest discomfort nor any significant ST segment changes. At this point recommend beta-blockers, statins, antiplatelet. Patient is noted to have lung mass, this needs further assessment. CHF: Recommend low-dose diuretics but follow renal functions. Further evaluation and management after review of 2D echo results. Chronic kidney disease: Patient noted to have elevated creatinine. Monitor renal functions closely. Hypertension: Recommend good control of blood pressure. Avoid any hypotension or severe hypertension. Lung mass: Awaiting evaluation and further assessment by oncologist. Awaiting oncology evaluation before formulating other management plans. Patient seems generally stable from cardiac standpoint. - Time Time with patient: 15-25 minutes - CODE STATUS was discussed, patient remains full code. Surrogate decision-maker unchanged. Multiple medical problems were addressed. More than 50% of the time spent coordinating care, discussing management plans with involved caregivers. Management plans discussed with involved personnels. Medical decision making was of moderate to high complexity , patient's has multiple comorbidities. Medications reviewed and adjusted accordingly: Yes
--- NOTE | 2017-12-06 11:46 | PDOC PROGRESS REPORT ---
Subjective Progress Note for:: 12/06/17 Subjective:: Patient seems to be doing better with gradual improvement. Pt is denying any chest arm or neck discomfort. Patient denying any PND, orthopnea. Patient denied any sustained palpitations, dizziness, syncope, near syncope. Patient denying any fever chills. Patient denying any other significant discomfort. Patient is maintaining sinus rhythm. Intermittent sinus tachycardia noted Review of systems: Rest review of systems negative. Medications: Medications have been reviewed. Reason For Visit: ARF,RVR Physical Exam Vital Signs: Temp Pulse Resp BP Pulse Ox 97.9 F 67 17 127/54 H 100 12/06/17 07:00 12/06/17 07:00 12/06/17 07:00 12/06/17 07:00 12/06/17 07:00 Intake & Output 12/05/17 12/06/17 12/07/17 06:59 06:59 06:59 Intake Total 2808 799 Balance 2808 799 Weight 75.9 kg Exam: GENERAL: well-nourished and in no acute distress. Alert and oriented x3 HEAD: Atraumatic, normocephalic. EYES: Pupils equal round and reactive to light, extraocular movements intact, sclera anicteric, conjunctiva are normal. ENT: TMs normal, nares patent, oropharynx clear without exudates. Moist mucous membranes. No oral ulcerations or bleeding gums noted NECK: supple without lymphadenopathy. Trachea is central. No cervical or axillary lymphadenopathy noted. Carotids are 2+, JVD WNL LUNGS: Respiration seems nonlabored, no significant accessory muscle action noted. Breath sounds clear to auscultation bilaterally and equal noted. No wheezes rales or rhonchi noted. No significant dullness noted on percussion. CHEST: Palpation of the chest wall shows no significant chest wall tenderness. No other significant abnormalities noted. 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 ABDOMEN: Soft, no significant tenderness appreciated, normoactive bowel sounds. No guarding, no rebound. No rigidity noted . No masses appreciated. EXTREMITIES: Pedal pulses are 1-2+, no calf tenderness noted. No clubbing or cyanosis.trace to 1+ pedal edema noted NEUROLOGICAL: Focused neurological exam showed no significant neurologic deficit. Normal speech, no focal weakness appreciated. PSYCH: Normal mood, normal affect. Judgment and insight within normal limits. SKIN: No significant ecchymosis, rash, ulcerations or signs of pruritus noted. MUSCULOSKELETAL EXAM: No significant joint swelling noted. Results Laboratory Results: 12/06/17 04:37 12/06/17 04:37 12/06/17 12/06/17 04:37 04:37 WBC 6.9 RBC 3.29 L Hgb 9.5 L Hct 29.2 L MCV 89 MCH 28.9 MCHC 32.6 RDW 15.1 H Plt Count 338 Sodium 137.5 Potassium 4.6 Chloride 102 Carbon Dioxide 22 Anion Gap 14 BUN 44 H Creatinine 1.45 H Est GFR ( Amer) 43 L Est GFR (Non-Af Amer) 35 L Glucose 197 H Calcium 8.6 Magnesium 2.2 Impressions: Chest X-Ray 12/03/17 12:24 IMPRESSION: NO SIGNIFICANT RADIOGRAPHIC FINDING IN THE CHEST. Lumbar Spine X-Ray 12/03/17 12:24 IMPRESSION: No lumbar compression deformity is identified. Lumbar Spine CT 12/03/17 14:54 IMPRESSION: No acute fracture or malalignment Pelvis X-Ray 12/03/17 15:51 IMPRESSION: NEGATIVE STUDY OF THE PELVIS. Chest/Abdomen CTA 12/03/17 16:00 IMPRESSION: NO PULMONARY EMBOLI. 14 MM SPICULATED NODULE WITHIN THE RIGHT MIDDLE LOBE SUSPICIOUS FOR NEOPLASTIC PROCESS. RECOMMEND BIOPSY AND/OR PET-CT. THERE IS A 4 MM DISC TEEN PULMONARY NODULE WHICH COULD REPRESENT A SATELLITE LESION. BILATERAL INDETERMINATE ADRENAL NODULES ABOVE. RECOMMEND DEDICATED ADRENAL CT OR MRI FOR COMPLETE CHARACTERIZATION. 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 Renal Ultrasound 12/06/17 00:00 IMPRESSION: Indeterminate approximately 2 cm lesion in the superior pole the left kidney. Recommend contrasted CT for further evaluation. Assessment & Plan - Diagnosis (1) Cardiac dysrhythmia Qualifiers: Arrhythmia type: unspecified cardiac arrhythmia Qualified Code(s): I49.9 - Cardiac arrhythmia, unspecified Is this a current diagnosis for this admission?: Yes (2) Chronic kidney disease Qualifiers: Chronic kidney disease stage: stage 2 (mild) Qualified Code(s): N18.2 - Chronic kidney disease, stage 2 (mild) Is this a current diagnosis for this admission?: Yes (3) Congestive heart failure (CHF) Qualifiers: Congestive heart failure type: diastolic Congestive heart failure chronicity: acute Qualified Code(s): I50.31 - Acute diastolic (congestive) heart failure Is this a current diagnosis for this admission?: Yes (4) Elevated troponin I level Is this a current diagnosis for this admission?: Yes (5) Hypertension Qualifiers: Hypertension type: essential hypertension Qualified Code(s): I10 - Essential (primary) hypertension Is this a current diagnosis for this admission?: Yes (6) Lung mass Is this a current diagnosis for this admission?: Yes - Notes Notes: Plans discussed with Hospitalists. Troponin I elevation: Exact etiology not clear Etiology could be supply demand mismatch from tachyarrhythmias in setting of chronic kidney disease and CHF. Ischemia evaluation can be considered but patient currently not experiencing any chest discomfort nor any significant ST segment changes. At this point recommend beta-blockers, statins, antiplatelet. Will add Ranexa to the regimen as patient noted to have significant coronary calcification. Patient is noted to have lung mass, this needs further assessment. CHF: Recommend low-dose diuretics but follow renal functions. Chronic kidney disease: Patient noted to have elevated creatinine. Monitor renal functions closely. Nephrology evaluation noted. Hypertension: Recommend good control of blood pressure. Avoid any hypotension or severe hypertension. Lung mass: Awaiting evaluation and further assessment by oncologist. Awaiting oncology evaluation before formulating other management plans. Patient seems generally stable from cardiac standpoint. - Time Time with patient: 15-25 minutes - CODE STATUS was discussed, patient remains full code. Surrogate decision-maker unchanged. Multiple medical problems were addressed. More than 50% of the time spent coordinating care, discussing management plans with involved caregivers. Management plans discussed with involved personnels. Medical decision making was of moderate to high complexity , patient's has multiple comorbidities. Medications reviewed and adjusted accordingly: Yes
--- NOTE | 2017-12-06 15:06 | PDOC CONSULTATION ---
Consultation Consult Date: 12/06/17 Attending physician:: MICHAEL LEO Consult reason:: new noted lung, kidney, adrenal lesions History of Present Illness Admission Date/PCP: 12/04/17 07:59 KATHERIN SCHRADER MD Patient complains of: Shortness of breath, chest pain, no longer having this, found to have lung lesion, kidney lesion, adrenal lesions History of Present Illness: 72-year-old female, with recent diagnosis of lung, adrenal, kidney lesions. She presented with what appeared to be volume overload, heart failure, ultimately patient has been diuresed, she also had some element of worsened kidney function, and that has improved over time. She had a CT of the chest because of the chest pain and shortness of breath, looking for PE, and this actually indicated a 1. 4 cm right middle lobe lesion, also indicated a right adrenal 1.3 cm lesion, left adrenal 1.5 cm lesion, nephrology has been working her up as well for her kidney dysfunction, and ordered renal ultrasound and this actually indicated a 2 cm left kidney lesion. She doing much better now, she seems to be euvolemic now. We have been asked to consult for the concern of malignancy. Of note, she has had some weight loss though not quantifiable, she feels fine but her family who is at bedside feels like she has been becoming weaker and more short of breath over the last 2 months. Past Medical History Cardiac Medical History: Reports: Hyperlipidema, Hypertension Denies: Coronary Artery Disease, Myocardial Infarction Pulmonary Medical History: Denies: Asthma, Bronchitis, Chronic Obstructive Pulmonary Disease (COPD), Pneumonia Neurological Medical History: Denies: Seizures Endocrine Medical History: Reports: Diabetes Mellitus Type 2, Obesity GI Medical History: Reports: Gastroesophageal Reflux Disease, Other - Cholelithiasis, refused surgery Musculoskeltal Medical History: Reports: Other - Recent history of left forearm fracture and shattered elbow Denies: Arthritis Psychiatric Medical History: Reports: Depression Hematology: Denies: Anemia Past Surgical History Past Surgical History: Reports: Orthopedic Surgery - Surgery for left forearm fracture and elbow fracture, Other - Skin cancer surgery on her nose, D&C in 1977, pilonidal cyst excision Social History Information Source: Relative Lives with: Alone Smoking Status: Never Smoker Frequency of Alcohol Use: None Hx Recreational Drug Use: No Drugs: None Hx Prescription Drug Abuse: No - Advance Directive Resuscitation Status: Full Code Family History Family History: CAD, DM, Malignancy Parental Family History Reviewed: Yes Children Family History Reviewed: Yes Sibling(s) Family History Reviewed.: Yes Medication/Allergy Home Medications: Acetaminophen/Diphenhydramine [Tylenol Pm Ex-Strength Caplet] 2 tab PO HSP PRN 10/15/17 Aspirin [Lo-Dose Aspirin EC] 81 mg PO DAILY 10/15/17 Clonidine HCl 0.2 mg PO Q12 10/15/17 Glimepiride 4 mg PO BID 10/15/17 Insulin Aspart Prot/Insuln Asp [Novolog Mix 70-30 Flexpen Syrn] 25 units SUBCUT QHS 10/15/17 Insulin Aspart Prot/Insuln Asp [Novolog Mix 70-30 Flexpen Syrn] 45 units SUBCUT QAM 10/15/17 Lisinopril/Hydrochlorothiazide [Lisinopril-Hctz 20-25 mg Tab] 1 tab PO DAILY Melatonin 10 mg PO QHS 10/15/17 Metformin HCl 1,000 mg PO BIDBS 10/15/17 Metoprolol Succinate 100 mg PO QHS 10/15/17 Multivitamin [Multivitamins] 1 cap PO DAILY 10/15/17 Omeprazole 40 mg PO DAILY 10/15/17 Pravastatin Sodium 20 mg PO QHS 10/15/17 Sertraline HCl 100 mg PO QHS 10/15/17 Furosemide [Lasix 40 mg Tablet] 40 mg PO Q2D 12/04/17 Allergies/Adverse Reactions: No Known Allergies Allergy (Verified 12/03/17 11:51) Review of Systems Constitutional: ABSENT: chills, fever(s), headache(s), weight gain, weight loss Eyes: ABSENT: visual disturbances Ears: ABSENT: hearing changes Cardiovascular: ABSENT: chest pain, dyspnea on exertion, edema, orthropnea, palpitations Respiratory: ABSENT: cough, hemoptysis Gastrointestinal: ABSENT: abdominal pain, constipation, diarrhea, hematemesis, hematochezia, nausea, vomiting Genitourinary: ABSENT: dysuria, hematuria Musculoskeletal: ABSENT: joint swelling Integumentary: ABSENT: rash, wounds Neurological: ABSENT: abnormal gait, abnormal speech, confusion, dizziness, focal weakness, syncope Psychiatric: ABSENT: anxiety, depression, homidical ideation, suicidal ideation Endocrine: ABSENT: cold intolerance, heat intolerance, polydipsia, polyuria Hematologic/Lymphatic: ABSENT: easy bleeding, easy bruising Physical Exam Vital Signs: Temp Pulse Resp BP Pulse Ox 97.9 F 67 17 127/54 H 100 12/06/17 07:00 12/06/17 07:00 12/06/17 07:00 12/06/17 07:00 12/06/17 07:00 Intake & Output 12/05/17 12/06/17 12/07/17 06:59 06:59 06:59 Intake Total 2808 799 Balance 2808 799 Weight 75.9 kg General appearance: PRESENT: no acute distress, well-developed, well-nourished Head exam: PRESENT: atraumatic, normocephalic Eye exam: PRESENT: conjunctiva pink, EOMI, PERRLA. ABSENT: scleral icterus Ear exam: PRESENT: normal external ear exam Mouth exam: PRESENT: moist, tongue midline Neck exam: ABSENT: carotid bruit, JVD, lymphadenopathy, thyromegaly Respiratory exam: PRESENT: clear to auscultation niall. ABSENT: rales, rhonchi, wheezes Cardiovascular exam: PRESENT: RRR. ABSENT: diastolic murmur, rubs, systolic murmur Pulses: PRESENT: normal dorsalis pedis pul Vascular exam: PRESENT: normal capillary refill GI/Abdominal exam: PRESENT: normal bowel sounds, soft. ABSENT: distended, guarding, mass, organolmegaly, rebound, tenderness Rectal exam: PRESENT: deferred Extremities exam: PRESENT: full ROM. ABSENT: calf tenderness, clubbing, pedal edema Neurological exam: PRESENT: alert, awake, oriented to person, oriented to place , oriented to time, oriented to situation, CN II-XII grossly intact. ABSENT: motor sensory deficit Psychiatric exam: PRESENT: appropriate affect, normal mood. ABSENT: homicidal ideation, suicidal ideation Skin exam: PRESENT: dry, intact, warm. ABSENT: cyanosis, rash Results Laboratory Results: 12/06/17 04:37 12/06/17 04:37 12/06/17 12/06/17 04:37 04:37 WBC 6.9 RBC 3.29 L Hgb 9.5 L Hct 29.2 L MCV 89 MCH 28.9 MCHC 32.6 RDW 15.1 H Plt Count 338 Sodium 137.5 Potassium 4.6 Chloride 102 Carbon Dioxide 22 Anion Gap 14 BUN 44 H Creatinine 1.45 H Est GFR ( Amer) 43 L Est GFR (Non-Af Amer) 35 L Glucose 197 H Calcium 8.6 Magnesium 2.2 Impressions: Chest X-Ray 12/03/17 12:24 IMPRESSION: NO SIGNIFICANT RADIOGRAPHIC FINDING IN THE CHEST. Lumbar Spine X-Ray 12/03/17 12:24 IMPRESSION: No lumbar compression deformity is identified. Lumbar Spine CT 12/03/17 14:54 IMPRESSION: No acute fracture or malalignment Pelvis X-Ray 12/03/17 15:51 IMPRESSION: NEGATIVE STUDY OF THE PELVIS. Chest/Abdomen CTA 12/03/17 16:00 IMPRESSION: NO PULMONARY EMBOLI. 14 MM SPICULATED NODULE WITHIN THE RIGHT MIDDLE LOBE SUSPICIOUS FOR NEOPLASTIC PROCESS. RECOMMEND BIOPSY AND/OR PET-CT. THERE IS A 4 MM DISC TEEN PULMONARY NODULE WHICH COULD REPRESENT A SATELLITE LESION. BILATERAL INDETERMINATE ADRENAL NODULES ABOVE. RECOMMEND DEDICATED ADRENAL CT OR MRI FOR COMPLETE CHARACTERIZATION. 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 Renal Ultrasound 12/06/17 00:00 IMPRESSION: Indeterminate approximately 2 cm lesion in the superior pole the left kidney. Recommend contrasted CT for further evaluation. Status: Image reviewed by me Assessment & Plan - Diagnosis (1) Lung mass Is this a current diagnosis for this admission?: Yes Plan: Patient does have a lung mass and bilateral adrenal lesions, also a kidney lesion, overall picture concerning for primary lung cancer but patient is a non- smoker. It is possible for this to be a kidney cancer with some other involvement or could be 2 separate lesions. Regardless, I believe we should do PET/CT prior to deciding to biopsy anything. Given the fact that she is a never smoker it may be that these findings are arbitrary. We will set up PET/ CT for approximately 1 week time, and we will see her back thereafter. We will give the information today to her daughters who were at bedside as well as the patient herself. They live in [facility] but they would like to be followed here for this. - Time Time Spent: Greater than 70 Minutes Anticipated discharge: Home Within: within 24 hours
--- NOTE | 2017-12-06 16:26 | PDOC PROGRESS REPORT ---
Subjective Progress Note for:: 12/06/17 Subjective:: Patient is doing fine and has no complaints including chest pains no shortness of breath. She admits that she did have an increase urine output after the IV Lasix last night. She is currently being seen by oncologist, Dr. Sol and plans to have a PET scan in a week. Reason For Visit: ARF,RVR Physical Exam Vital Signs: Temp Pulse Resp BP Pulse Ox 97.5 F 56 L 18 134/64 H 100 12/06/17 12:00 12/06/17 12:00 12/06/17 12:00 12/06/17 12:00 12/06/17 12:00 Intake & Output 12/05/17 12/06/17 12/07/17 06:59 06:59 06:59 Intake Total 2808 799 Balance 2808 799 Weight 75.9 kg Exam: General appearance: PRESENT: no acute distress, cooperative, well-developed, well-nourished Head exam: PRESENT: atraumatic, normocephalic Eye exam: PRESENT: conjunctiva pale, PERRLA. ABSENT: scleral icterus Neck exam: ABSENT: JVD Respiratory exam: PRESENT: Diminished breath sounds. ABSENT: crackles, rales, rhonchi, unlabored, wheezes Cardiovascular exam: PRESENT: Regular rate rhythm -+S1, +S2. ABSENT: diastolic murmur, systolic murmur GI/Abdominal exam: PRESENT: normal bowel sounds, soft. ABSENT: guarding, mass, tenderness Extremities exam: Grade 1 bilateral lower extremity pitting edema Neurological exam: PRESENT: alert, awake, oriented to person, place and time. Skin exam: PRESENT: dry, warm, Results Laboratory Results: 12/06/17 04:37 12/06/17 04:37 12/06/17 12/06/17 04:37 04:37 WBC 6.9 RBC 3.29 L Hgb 9.5 L Hct 29.2 L MCV 89 MCH 28.9 MCHC 32.6 RDW 15.1 H Plt Count 338 Sodium 137.5 Potassium 4.6 Chloride 102 Carbon Dioxide 22 Anion Gap 14 BUN 44 H Creatinine 1.45 H Est GFR ( Amer) 43 L Est GFR (Non-Af Amer) 35 L Glucose 197 H Calcium 8.6 Magnesium 2.2 Impressions: Chest X-Ray 12/03/17 12:24 IMPRESSION: NO SIGNIFICANT RADIOGRAPHIC FINDING IN THE CHEST. Lumbar Spine X-Ray 12/03/17 12:24 IMPRESSION: No lumbar compression deformity is identified. Lumbar Spine CT 12/03/17 14:54 IMPRESSION: No acute fracture or malalignment Pelvis X-Ray 12/03/17 15:51 IMPRESSION: NEGATIVE STUDY OF THE PELVIS. Chest/Abdomen CTA 12/03/17 16:00 IMPRESSION: NO PULMONARY EMBOLI. 14 MM SPICULATED NODULE WITHIN THE RIGHT MIDDLE LOBE SUSPICIOUS FOR NEOPLASTIC PROCESS. RECOMMEND BIOPSY AND/OR PET-CT. THERE IS A 4 MM DISC TEEN PULMONARY NODULE WHICH COULD REPRESENT A SATELLITE LESION. BILATERAL INDETERMINATE ADRENAL NODULES ABOVE. RECOMMEND DEDICATED ADRENAL CT OR MRI FOR COMPLETE CHARACTERIZATION. 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 Renal Ultrasound 12/06/17 00:00 IMPRESSION: Indeterminate approximately 2 cm lesion in the superior pole the left kidney. Recommend contrasted CT for further evaluation. Assessment & Plan - Diagnosis (1) Acute kidney injury Is this a current diagnosis for this admission?: Yes Plan: Patient does not seem to be oliguric. She does not have any proteinuria no hematuria. This could be secondary to multiple prerenal factors which include initial dehydration, contrast, medications including 1 dose of ketorolac, lisinopril. Currently the patient is actually clinically hypervolemic and does not appear to be volume depleted. Kidney ultrasound is currently pending. She did not have any urinary retention . Kidney function is improved today. I will resume her oral Lasix at 40 mg p.o. daily starting today. Continue to monitor kidney function. He does not need any renal replacement therapy. Continue to hold metformin, lisinopril, and other nephrotoxic medications. If the patient goes home in the next few days I will be happy to follow her up in my office in 2-3 weeks. She is to have a repeat CBC, BMP and phosphorus level about 3 days before coming to see me in my office if they choose to follow-up with me. (2) Hyponatremia Is this a current diagnosis for this admission?: Yes Plan: This could be due to a combination previous intake of hydrochlorothiazide at home and current hypervolemic state. Hold hydrochlorothiazide. Now resolved. (3) Metabolic acidosis Is this a current diagnosis for this admission?: Yes Plan: Resolved. (4) Hyperphosphatemia Is this a current diagnosis for this admission?: Yes Plan: Due to AK I. Repeat phosphorus level and follow-up visit with me as an outpatient. (5) Anemia Is this a current diagnosis for this admission?: Yes (6) Renal mass, left Is this a current diagnosis for this admission?: Yes Plan: Agree with doing PET scan to evaluate masses in different location including the lung, kidneys and adrenals. 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 (9) Lung mass Is this a current diagnosis for this admission?: Yes Plan: Agree with PET scan. Dr. Varela, oncology is consulted. (10) Obesity with serious comorbidity Qualifiers: Obesity type: due to excess calories Obesity classification: adult class 1 (BMI 30 - 34.9) Body mass index: BMI 31.0-31.9 Qualified Code(s): E66.09 - Other obesity due to excess calories; Z68.31 - Body mass index (BMI) 31.0-31.9, adult; Z68.31 - Body mass index (BMI) 31.0-31.9, adult Is this a current diagnosis for this admission?: Yes - Time Time with patient: 15-25 minutes
[2017-12-06] MEDS ORDERED: FUROSEMIDE 40 MG TABLET PO ONE (16:45)
[2017-12-06] MEDS: INSULIN LISPRO 100 UNIT/ML 3 ML VIAL SUBCUT PRN (18:25)
--- NOTE | 2017-12-06 19:46 | PDOC CONSULTATION ---
Consultation Consult Date: 12/04/17 Attending physician:: MICHEAL EVANS Consult reason:: Atrial fibrillation with rapid ventricular response History of Present Illness Admission Date/PCP: 12/04/17 07:59 KATHERIN SCHRADER MD Patient complains of: Shortness of breath History of Present Illness: CAPRICE KNOTT is a 72 year old female with a PMH of DM, HTN, HLD, depression who presents with shortness of breath. Patient reports several days of shortness of breath. She reports that she fell at home after having some dizziness and hurt her lower back but did not lose consciousness. She does report that she has had some soft stool today. She reports that she has had some loose stool over the past week. She reports that she has had a decreased appetite has been eating or drinking very well. She reports that she has no cough and denies any sputum production. She does state that she had a fever of up to 101 several days ago and took Tylenol approximately 2 days ago she denies any nausea or vomiting. She does report some chest pressure that she reports is better with movement. CTA done in the emergency department reveals a spiculated lung mass with associated nodule. She is referred to the hospitalist service for acute renal failure. This history was reviewed, supplemented and confirmed. I was consulted to evaluate patient for atrial fibrillation with rapid ventricular response on presentation. Patient was also noted to have elevated troponin I. Past Medical History Cardiac Medical History: Reports: Hyperlipidema, Hypertension Denies: Coronary Artery Disease, Myocardial Infarction Pulmonary Medical History: Denies: Asthma, Bronchitis, Chronic Obstructive Pulmonary Disease (COPD), Pneumonia Neurological Medical History: Denies: Seizures Endocrine Medical History: Reports: Diabetes Mellitus Type 2, Obesity Musculoskeltal Medical History: Denies: Arthritis Psychiatric Medical History: Reports: Depression Hematology: Denies: Anemia Past Surgical History Past Surgical History: Reports: Orthopedic Surgery, Other - Skin cancer surgery on her nose Social History Information Source: Patient Lives with: Family Smoking Status: Never Smoker Frequency of Alcohol Use: None Hx Recreational Drug Use: No Drugs: None Hx Prescription Drug Abuse: No - Advance Directive Resuscitation Status: Full Code Surrogate healthcare decision maker:: Patient's daughter is the surrogate decision-maker Family History Family History: CAD, DM, Malignancy Parental Family History Reviewed: Yes Children Family History Reviewed: Yes Sibling(s) Family History Reviewed.: Yes Medication/Allergy Home Medications: Acetaminophen/Diphenhydramine [Tylenol Pm Ex-Strength Caplet] 2 tab PO HSP PRN 10/15/17 Aspirin [Lo-Dose Aspirin EC] 81 mg PO DAILY 10/15/17 Clonidine HCl 0.2 mg PO Q12 10/15/17 Glimepiride 4 mg PO BID 10/15/17 Insulin Aspart Prot/Insuln Asp [Novolog Mix 70-30 Flexpen Syrn] 25 units SUBCUT QHS 10/15/17 Insulin Aspart Prot/Insuln Asp [Novolog Mix 70-30 Flexpen Syrn] 45 units SUBCUT QAM 10/15/17 Melatonin 10 mg PO QHS 10/15/17 Metoprolol Succinate 100 mg PO QHS 10/15/17 Multivitamin [Multivitamins] 1 cap PO DAILY 10/15/17 Omeprazole 40 mg PO DAILY 10/15/17 Pravastatin Sodium 20 mg PO QHS 10/15/17 Sertraline HCl 100 mg PO QHS 10/15/17 Furosemide [Lasix 40 mg Tablet] 40 mg PO DAILY #30 tablet 12/07/17 Allergies/Adverse Reactions: No Known Allergies Allergy (Verified 12/03/17 11:51) Review of Systems Review of Systems: Please see history of present illness and past medical history as wall. Constitutional: No fever or chills reported. Head : No recent chronic headaches, recent head injury. Eyes: No recent eye pain, diplopia, redness, discharge, acute visual changes. Ears: No recent chronic ear pain, acute hearing loss, ear discharge. Oral cavity: No recent ulcerations, bleeding, oral cavity discomfort. Neck: No recent acute neck pain reported. Hematologic: No recent easy bruising or bleeding or hematologic malignancy reported. Lymphatic: No recent lymphatic malignancy, chronic lymphadenopathy reported yet Cardiovascular system review: See history of present illness. Respiratory system review: No recent chronic cough, hemoptysis, blood clots in the lungs reported. Mild Shortness of breath on exertion Gastrointestinal system review: Negative for any recent acute or chronic abdominal pain, hematemesis, melena, recent change in bowel habits. Genitourinary system review: No recent acute or chronic hematuria, flank pain, UTI etc. reported. Skin system review: Negative for any recent abnormal bruising, no rash, no pruritus reported. Neurologic: No prior history of strokes, mini strokes, seizure disorder. Psychologic: No history of major psychosis or major depression reported. Musculoskeletal: Minor aches and pains reported. No acute joint swelling reported. Endocrine: No recent polyuria, polydipsia, recent heat or cold intolerance. Physical Exam Vital Signs: Temp Pulse Resp BP Pulse Ox 98.7 F 75 16 92/72 L 100 12/04/17 15:31 12/04/17 15:31 12/04/17 15:31 12/04/17 15:31 12/04/17 15:31 Intake & Output 12/03/17 12/04/17 12/05/17 06:59 06:59 06:59 Intake Total 1620 Balance 1620 Exam: GENERAL: well-nourished and in no acute distress. Alert and oriented x3 HEAD: Atraumatic, normocephalic. EYES: Pupils equal round and reactive to light, extraocular movements intact, sclera anicteric, conjunctiva are normal. ENT: TMs normal, nares patent, oropharynx clear without exudates. Moist mucous membranes. No oral ulcerations or bleeding gums noted NECK: supple without lymphadenopathy. Trachea is central. No cervical or axillary lymphadenopathy noted. Carotids are 2+, JVD WNL LUNGS: Respiration seems nonlabored, no significant accessory muscle action noted. Few bibasilar fine crackles and few bilateral wheezes rales or rhonchi noted. No significant dullness noted on percussion. CHEST: Palpation of the chest wall shows no significant chest wall tenderness. No other significant abnormalities noted. HEART: [place] [employer], No PSH, 1/6 MIGUEL ANGEL aortic area, 1/6 merritt systolic murmur mitral area, no rubs, no gallops. ABDOMEN: Soft, no significant tenderness appreciated, normoactive bowel sounds. No guarding, no rebound. No rigidity noted . No masses appreciated. EXTREMITIES: Pedal pulses are 1-2+, no calf tenderness noted. No clubbing or cyanosis. 1+ pedal edema noted NEUROLOGICAL: Focused neurological exam showed no significant neurologic deficit. Normal speech, no focal weakness appreciated. PSYCH: Normal mood, normal affect. Judgment and insight within normal limits. SKIN: No significant ecchymosis, rash, ulcerations or signs of pruritus noted. MUSCULOSKELETAL EXAM: No significant joint swelling noted. Results EKG Comments: Multiple EKGs reviewed. Most EKGs and rhythm strips suggest patient is in sinus rhythm. However one EKG, it is difficult to assess the rhythm. It could well be atrial flutter with 2-1 conduction but could well be just marked sinus tachycardia. Impressions: Chest X-Ray 12/03/17 12:24 IMPRESSION: NO SIGNIFICANT RADIOGRAPHIC FINDING IN THE CHEST. Lumbar Spine X-Ray 12/03/17 12:24 IMPRESSION: No lumbar compression deformity is identified. Lumbar Spine CT 12/03/17 14:54 IMPRESSION: No acute fracture or malalignment Pelvis X-Ray 12/03/17 15:51 IMPRESSION: NEGATIVE STUDY OF THE PELVIS. Chest/Abdomen CTA 12/03/17 16:00 IMPRESSION: NO PULMONARY EMBOLI. 14 MM SPICULATED NODULE WITHIN THE RIGHT MIDDLE LOBE SUSPICIOUS FOR NEOPLASTIC PROCESS. RECOMMEND BIOPSY AND/OR PET-CT. THERE IS A 4 MM DISC TEEN PULMONARY NODULE WHICH COULD REPRESENT A SATELLITE LESION. BILATERAL INDETERMINATE ADRENAL NODULES ABOVE. RECOMMEND DEDICATED ADRENAL CT OR MRI FOR COMPLETE CHARACTERIZATION. 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 Assessment & Plan - Diagnosis (1) Cardiac dysrhythmia Qualifiers: Arrhythmia type: unspecified cardiac arrhythmia Qualified Code(s): I49.9 - Cardiac arrhythmia, unspecified Is this a current diagnosis for this admission?: Yes (2) Congestive heart failure (CHF) Qualifiers: Congestive heart failure type: diastolic Congestive heart failure chronicity: acute Qualified Code(s): I50.31 - Acute diastolic (congestive) heart failure Is this a current diagnosis for this admission?: Yes (3) Hypertension Qualifiers: Hypertension type: essential hypertension Qualified Code(s): I10 - Essential (primary) hypertension Is this a current diagnosis for this admission?: Yes (4) Lung mass Is this a current diagnosis for this admission?: Yes (5) Chronic kidney disease Qualifiers: Chronic kidney disease stage: stage 2 (mild) Qualified Code(s): N18.2 - Chronic kidney disease, stage 2 (mild) Is this a current diagnosis for this admission?: Yes (6) Elevated troponin I level Is this a current diagnosis for this admission?: Yes - Notes Notes: Troponin I elevation: Exact etiology not. Have ordered a 2D echo. Etiology could be supply demand mismatch from tachyarrhythmias in setting of chronic kidney disease and CHF. Ischemia evaluation can be considered but patient currently not experiencing any chest discomfort nor any significant ST segment changes. At this point recommend rate control. Patient is noted to have lung mass, this needs further assessment. Further rhythm strips to be reviewed to assess underlying rhythm. CHF: Recommend low-dose diuretics but follow renal functions. Further evaluation and management after review of 2D echo results. Chronic kidney disease: Patient noted to have elevated creatinine. Monitor renal functions closely. Hypertension: Recommend good control of blood pressure. Avoid any hypotension or severe hypertension. Lung mass: Awaiting evaluation and further assessment by oncologist. - Time Time Spent: 30 to 50 Minutes - CODE STATUS was discussed, patient remains full code. Surrogate decision-maker patient's daughter. Multiple medical problems were addressed. More than 50% of the time spent coordinating care, discussing management plans with involved caregivers. Management plans discussed with involved personnels. Medical decision making was of moderate to high complexity , patient's has multiple comorbidities. Medications reviewed and adjusted accordingly: Yes
[2017-12-06] MEDS: SERTRALINE HCL 50 MG TABLET PO SCH (22:08)
[2017-12-06] MEDS: ATORVASTATIN CALCIUM 40 MG TABLET PO SCH (22:09)
[2017-12-06] MEDS: METOPROLOL SUCCINATE 50 MG TAB.SR.24H PO SCH (22:09)
[2017-12-07] MEDS: LANSOPRAZOLE 30 MG TAB.RAP.DR PO SCH (05:37)
[2017-12-07] MEDS: INSULIN LISPRO 100 UNIT/ML 3 ML VIAL SUBCUT PRN ×2 (08:26→12:35)
[2017-12-07] MEDS ORDERED: FUROSEMIDE 40 MG TABLET PO SCH (10:00)
[2017-12-07] MEDS: ASPIRIN 81 MG TABLET, ENT COATED PO SCH (10:46)
[2017-12-07] MEDS: FAMOTIDINE 20 MG TABLET PO SCH (10:46)
[2017-12-07] MEDS: DOCUSATE SODIUM 100 MG CAPSULE PO SCH (10:46)
[2017-12-07] MEDS: GLIMEPIRIDE 4 MG TABLET PO SCH (10:46)
[2017-12-07] MEDS: CLONIDINE HCL 0.2 MG TABLET PO SCH (10:47)
--- NOTE | 2017-12-07 10:56 | PDOC PROGRESS REPORT ---
Subjective Progress Note for:: 12/07/17 Subjective:: No acute events overnight, BG high still overnight Reason For Visit: ARF,RVR Physical Exam Vital Signs: Temp Pulse Resp BP Pulse Ox 97.7 F 53 L 16 147/50 H 100 12/07/17 08:00 12/07/17 08:00 12/07/17 08:00 12/07/17 08:00 12/07/17 08:00 Intake & Output 12/06/17 12/07/17 12/08/17 06:59 06:59 06:59 Intake Total 799 2720 Balance 799 2720 Weight 75.8 kg General appearance: PRESENT: no acute distress, well-developed, well-nourished Head exam: PRESENT: atraumatic, normocephalic Eye exam: PRESENT: conjunctiva pink, EOMI, PERRLA. ABSENT: scleral icterus Ear exam: PRESENT: normal external ear exam Mouth exam: PRESENT: moist, tongue midline Neck exam: ABSENT: carotid bruit, JVD, lymphadenopathy, thyromegaly Respiratory exam: PRESENT: clear to auscultation niall. ABSENT: rales, rhonchi, wheezes Cardiovascular exam: PRESENT: RRR. ABSENT: diastolic murmur, rubs, systolic murmur Pulses: PRESENT: normal dorsalis pedis pul Vascular exam: PRESENT: normal capillary refill GI/Abdominal exam: PRESENT: normal bowel sounds, soft. ABSENT: distended, guarding, mass, organolmegaly, rebound, tenderness Rectal exam: PRESENT: deferred Extremities exam: PRESENT: full ROM. ABSENT: calf tenderness, clubbing, pedal edema Neurological exam: PRESENT: alert, awake, oriented to person, oriented to place , oriented to time, oriented to situation, CN II-XII grossly intact. ABSENT: motor sensory deficit Psychiatric exam: PRESENT: appropriate affect, normal mood. ABSENT: homicidal ideation, suicidal ideation Skin exam: PRESENT: dry, intact, warm. ABSENT: cyanosis, rash Results Laboratory Results: 12/06/17 04:37 12/06/17 04:37 Impressions: Chest X-Ray 12/03/17 12:24 IMPRESSION: NO SIGNIFICANT RADIOGRAPHIC FINDING IN THE CHEST. Lumbar Spine X-Ray 12/03/17 12:24 IMPRESSION: No lumbar compression deformity is identified. Lumbar Spine CT 12/03/17 14:54 IMPRESSION: No acute fracture or malalignment Pelvis X-Ray 12/03/17 15:51 IMPRESSION: NEGATIVE STUDY OF THE PELVIS. Chest/Abdomen CTA 12/03/17 16:00 IMPRESSION: NO PULMONARY EMBOLI. 14 MM SPICULATED NODULE WITHIN THE RIGHT MIDDLE LOBE SUSPICIOUS FOR NEOPLASTIC PROCESS. RECOMMEND BIOPSY AND/OR PET-CT. THERE IS A 4 MM DISC TEEN PULMONARY NODULE WHICH COULD REPRESENT A SATELLITE LESION. BILATERAL INDETERMINATE ADRENAL NODULES ABOVE. RECOMMEND DEDICATED ADRENAL CT OR MRI FOR COMPLETE CHARACTERIZATION. 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 Renal Ultrasound 12/06/17 00:00 IMPRESSION: Indeterminate approximately 2 cm lesion in the superior pole the left kidney. Recommend contrasted CT for further evaluation. Assessment & Plan - Diagnosis (1) Lung mass Is this a current diagnosis for this admission?: Yes Plan: PEt instructions given to pt, likely d/c home soon, will have f/u in office
[2017-12-07] MEDS ORDERED: HUM INSULIN NPH/REG INSULIN HM 100 UNIT/1 ML 3 ML SUBCUT ONE (11:15)
--- NOTE | 2017-12-07 11:19 | DISCHARGE SUMMARY E ---
Discharge Summary NAME: CAPRICE KNOTT : 1945 AGE: 72Y ADMITTED: 12/04/2017 DISCHARGED: 12/07/2017 CODE STATUS: FULL CODE. PRIMARY CARE PROVIDER: Celestina Pinzon CONSULTING CONVERTING SUPERVISOR: Dr. Winslow CONSULTING HOSPITALITY AMBASSADOR: Dr. Long CONSULTING ONCOLOGIST: Dr. Sol DISCHARGE DIAGNOSES: 1. Ucihk-wc-wjirusv diastolic congestive heart failure. 2. Acute renal failure secondary to renal congestion from #1 as well as nephrotoxic medications, overall improving. 3. Diabetes mellitus type 2. 4. Hypertension. 5. Lung mass. 6. Bilateral adrenal lesion. 7. Kidney lesion. 8. Tachyarrhythmia. DISCHARGE MEDICATIONS: 1. Lasix 40 mg p.o. daily, 30 tablets with 0 refills. 2. Tylenol P.M. 2 tablets p.o. at hour of sleep p.r.n. 3. Aspirin 81 mg p.o. daily. 4. Glimepiride 4 mg p.o. b.i.d. 5. Novolog 70/30 at 45 units subcutaneous a.m. 6. Novolog 70/30 at 24 units subcutaneous at hour of sleep. 7. Melatonin 10 mg p.o. at hour of sleep. 8. Toprol XL 100 mg p.o. every 24 hours. 9. Multivitamin 1 tablet p.o. daily. 10. Omeprazole 40 mg p.o. daily. 11. Pravastatin 20 mg p.o. at hour of sleep. 12. Sertraline 100 mg p.o. at hour of sleep. 13. Clonidine 0.2 mg p.o. q.12 hours. DIET: Heart healthy. ACTIVITY: As tolerated. DIAGNOSTICS: Lab values are as follows: Hematology obtained on 12/06/2017: WBCs are 6.9, hemoglobin is 9.5, hematocrit is 29.2, platelet count is 338,000. Chemistry obtained on 12/06/2017: Sodium is 137, potassium 4.6, chloride is 102, carbon dioxide is 22, BUN 44, creatinine is 1.45, glucose 197, calcium is 8.6, magnesium is 2.2, phosphorus 4.7, magnesium is 2.2, bilirubin is 0.7, AST 36, ALT is 48, alk phos 192, total protein 5.4, albumin 2.6, TSH is 0.94. Urinalysis obtained on 12/04/2017: Color yellow, appearance clear, pH is 5.0, specific gravity 1.049, protein negative, glucose 150, ketones negative, occult blood negative, nitrate negative, bilirubin negative, urobilinogen negative, leukocyte esterase negative, casts 1, ascorbic acid is negative. Microbiology: Blood cultures obtained on 12/03/2017 reveal no growth. Chest x-ray obtained on 12/03/2017 reveals no significant radiographic finding of the chest. Lumbar spine x-ray obtained on 12/03/2017 reveals no lumbar compression deformity identified. Lumbar spine CT obtained on 12/03/2017 reveals no acute fracture of malalignment. Pelvis x-ray obtained on 12/03/2017 reveals negative study of the pelvis. CTA of the chest and abdomen obtained on 12/03/2017 reveals a 14 mm spiculated nodule within the right middle lobe suspicious for neoplastic process. There is a 4 mm pulmonary nodule which could be seen as satellite lesion, bilateral intermediate adrenal nodules, cholelithiasis without evidence of cholecystitis. Renal ultrasound obtained on 12/06/2017 reveals an intermediate 2 cm lesion in the superior pole of the left kidney. EKG obtained on 12/03/2017 reveals sinus tachycardia. EKG obtained on 12/03/2017 reveals sinus rhythm. EKG obtained on 12/03/2017 reveals sinus tachycardia. EKG obtained on 12/03/2017 reveals sinus tachycardia. Echocardiogram obtained on 12/04/2017 reveals mild to moderate diastolic dysfunction with elevated right RV pressures. PHYSICAL EXAMINATION: GENERAL: On examination, the patient is a well-developed, well-nourished, 72-year-old female who is awake, alert, and oriented to person, place, time, and situation. She is verbal, conversational, and does not appear to be in any acute distress. VITAL SIGNS: Temperature is 97.7, pulse 53, respirations 16, blood pressure 147/50, oxygen saturation is 100% on room air. SKIN: Warm and dry. No rash. She is not diaphoretic. HEENT: Pupils equal, round, reactive to light and accommodation. Conjunctivae are pink. There is no evidence of JVP. CARDIOVASCULAR: Heart is regular. There is no murmur or rub. CHEST: Clear, symmetrical, unlabored. ABDOMEN: Soft, nontender, nondistended. BACK: No CVA tenderness or sacral edema. EXTREMITIES: No clubbing or cyanosis. The patient does have trace bilateral lower extremity edema. HISTORY OF PRESENT ILLNESS: The patient is a very pleasant 72-year-old female with a past medical history of diabetes mellitus type 2 and hyperlipidemia. The patient presented to the emergency department with a chief complaint of shortness of breath. The patient reports several days of shortness of breath and she reported that she fell at home after having some dizziness but did not lose consciousness. The patient reports that she had a soft stool the day of presentation and reports that she had some loose stools over the past week. The patient reported that she had a decrease in appetite and had not been eating or drinking very well. The patient reported no cough or sputum production but stated that she felt she had a fever of 101 several days ago and took a Tylenol. Approximately 2 days ago, the patient reported some chest pressure that appeared to improve with movement though. CTA in the emergency department revealed a spiculated lung mass and associated nausea, and the patient was referred to the hospitalist for admission and management of acute renal failure. HOSPITAL COURSE: The patient was admitted to continuous telemetry unit. The patient had received IV contrast and therefore she was hydrated in hopes of improving this. However, the patient's creatinine initially of 1.43 topped out at 1.91. This was felt to also be due to nephrotoxic medications at home including lisinopril and metformin. The patient was seen by Dr. Long, and fluids were stopped and the patient was diuresed with significant improvement in her creatinine. The patient is instructed to continue with the Lasix daily instead of every 48 hours. The patient did have a tachy arrhythmia during her stay. There was no evidence of atrial etiology. The patient was seen by Dr. Winslow with cardiology and therefore does not feel the patient should be anticoagulated. Do have a suspicion that the patient missed her clonidine and metoprolol and may have had rebound tachycardia associated with this. However, the patient's symptoms are overall much improved and has had no recurrence of this event. Given the patient's masses, she was seen by Dr. Sol of oncology and appointment has been made for followup in the office and the patient will have a PET scan arranged next weekend when the truck is in town. DISCHARGE PLANNIN. The patient is to followup with Dr. Sol within 1 week as already scheduled. 2. The patient is to followup with Dr. Winslow within 2-4 weeks for hospital followup. 3. The patient is to followup with Dr. Long within 2 weeks for hospital followup. I have advised the patient to hold off on taking metformin as well as DEON inhibitor and hydrochlorothiazide until she is reevaluated by Nephrology. Time spent on this discharge including assessment, plan, physical examination, patient education, review of records, and speciality collaboration is 35 minutes. DICTATING PHYSICIAN: JUSTO RODRIGUEZ NP [id number] PHY#: [id number] ID: [id number] JOB#: [id number] ACCT: [id number] cc:MICHEAL EVANS M.D., MICHAEL NP > MTDD
[2017-12-07 12:29] VITALS: BP 162/63
--- NOTE | 2017-12-07 14:09 | PDOC PROGRESS REPORT ---
Subjective Progress Note for:: 12/07/17 Subjective:: Patient seems to be doing better with gradual improvement. Pt is denying any chest arm or neck discomfort. Patient denying any PND, orthopnea. Patient denied any sustained palpitations, dizziness, syncope, near syncope. Patient denying any fever chills. Patient denying any other significant discomfort. Patient is maintaining sinus rhythm. Mild intermittent sinus bradycardia noted. Review of systems: Rest review of systems negative. Medications: Medications have been reviewed. Reason For Visit: ARF,RVR Physical Exam Vital Signs: Temp Pulse Resp BP Pulse Ox 97.4 F 57 L 17 162/63 H 100 12/07/17 12:00 12/07/17 12:00 12/07/17 12:00 12/07/17 12:00 12/07/17 12:00 Intake & Output 12/06/17 12/07/17 12/08/17 06:59 06:59 06:59 Intake Total 799 2720 Balance 799 2720 Weight 75.8 kg Exam: GENERAL: well-nourished and in no acute distress. Alert and oriented x3 HEAD: Atraumatic, normocephalic. EYES: Pupils equal round and reactive to light, extraocular movements intact, sclera anicteric, conjunctiva are normal. ENT: TMs normal, nares patent, oropharynx clear without exudates. Moist mucous membranes. No oral ulcerations or bleeding gums noted NECK: supple without lymphadenopathy. Trachea is central. No cervical or axillary lymphadenopathy noted. Carotids are 2+, JVD WNL LUNGS: Respiration seems nonlabored, no significant accessory muscle action noted. Breath sounds clear to auscultation bilaterally and equal noted. No wheezes rales or rhonchi noted. No significant dullness noted on percussion. CHEST: Palpation of the chest wall shows no significant chest wall tenderness. No other significant abnormalities noted. HEART: [place] FILE KEEPER, No PSH, 1/6 MIGUEL ANGEL aortic area, 1/6 merritt systolic murmur mitral area, no rubs, no gallops. ABDOMEN: Soft, no significant tenderness appreciated, normoactive bowel sounds. No guarding, no rebound. No rigidity noted . No masses appreciated. EXTREMITIES: Pedal pulses are 1-2+, no calf tenderness noted. No clubbing or cyanosis.trace to 1+ pedal edema noted NEUROLOGICAL: Focused neurological exam showed no significant neurologic deficit. Normal speech, no focal weakness appreciated. PSYCH: Normal mood, normal affect. Judgment and insight within normal limits. SKIN: No significant ecchymosis, rash, ulcerations or signs of pruritus noted. MUSCULOSKELETAL EXAM: No significant joint swelling noted. Results Laboratory Results: 12/06/17 04:37 12/06/17 04:37 EKG Comments: Telemetry strip shows sinus rhythm without any sustained tachycardia or bradycardia arrhythmias. Impressions: Chest X-Ray 12/03/17 12:24 IMPRESSION: NO SIGNIFICANT RADIOGRAPHIC FINDING IN THE CHEST. Lumbar Spine X-Ray 12/03/17 12:24 IMPRESSION: No lumbar compression deformity is identified. Lumbar Spine CT 12/03/17 14:54 IMPRESSION: No acute fracture or malalignment Pelvis X-Ray 12/03/17 15:51 IMPRESSION: NEGATIVE STUDY OF THE PELVIS. Chest/Abdomen CTA 12/03/17 16:00 IMPRESSION: NO PULMONARY EMBOLI. 14 MM SPICULATED NODULE WITHIN THE RIGHT MIDDLE LOBE SUSPICIOUS FOR NEOPLASTIC PROCESS. RECOMMEND BIOPSY AND/OR PET-CT. THERE IS A 4 MM DISC TEEN PULMONARY NODULE WHICH COULD REPRESENT A SATELLITE LESION. BILATERAL INDETERMINATE ADRENAL NODULES ABOVE. RECOMMEND DEDICATED ADRENAL CT OR MRI FOR COMPLETE CHARACTERIZATION. 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 Renal Ultrasound 12/06/17 00:00 IMPRESSION: Indeterminate approximately 2 cm lesion in the superior pole the left kidney. Recommend contrasted CT for further evaluation. Assessment & Plan - Diagnosis (1) Coronary artery disease Qualifiers: Coronary Disease-Associated Artery/Lesion type: [place] artery Associated angina: angina presence unspecified Is this a current diagnosis for this admission?: Yes (2) Cardiac dysrhythmia Qualifiers: Arrhythmia type: unspecified cardiac arrhythmia Qualified Code(s): I49.9 - Cardiac arrhythmia, unspecified Is this a current diagnosis for this admission?: Yes (3) Chronic kidney disease Qualifiers: Chronic kidney disease stage: stage 2 (mild) Qualified Code(s): N18.2 - Chronic kidney disease, stage 2 (mild) Is this a current diagnosis for this admission?: Yes (4) Congestive heart failure (CHF) Qualifiers: Congestive heart failure type: diastolic Congestive heart failure chronicity: acute Qualified Code(s): I50.31 - Acute diastolic (congestive) heart failure Is this a current diagnosis for this admission?: Yes (5) Elevated troponin I level Is this a current diagnosis for this admission?: Yes (6) Hypertension Qualifiers: Hypertension type: essential hypertension Qualified Code(s): I10 - Essential (primary) hypertension Is this a current diagnosis for this admission?: Yes (7) Lung mass Is this a current diagnosis for this admission?: Yes - Notes Notes: Patient was noted to have significant coronary calcification on CT scan. This by definition confirms presence of CAD. At this point would recommend risk factor modification and medical management. Have not scheduled a ischemia evaluation because of other significant comorbid diagnosis, normal LVEF and no symptoms ongoing indicative of any ischemia. It was felt that troponin I elevation was related to supply demand mismatch in setting of chronic kidney disease and possibly some CHF. Also initially patient was felt to have atrial fibrillation but subsequently, on further review of EKGs, one cannot be sure of whether she really had A. fib or not my feeling is that she did not and it was just tachycardic rhythm. Troponin I elevation: Exact etiology not clear Etiology could be supply demand mismatch from tachyarrhythmias in setting of chronic kidney disease and CHF. Ischemia evaluation can be considered but patient currently not experiencing any chest discomfort nor any significant ST segment changes. At this point recommend beta-blockers, statins, antiplatelet. Will add Ranexa to the regimen as patient noted to have significant coronary calcification. Patient is noted to have lung mass, this needs further assessment. CHF: Recommend low-dose diuretics but follow renal functions. Chronic kidney disease: Patient noted to have elevated creatinine. Monitor renal functions closely. Nephrology evaluation noted. Hypertension: Recommend good control of blood pressure. Avoid any hypotension or severe hypertension. Lung mass: Awaiting evaluation and further assessment by oncologist. Awaiting oncology evaluation before formulating other management plans. Patient seems generally stable from cardiac standpoint. - Time Time with patient: Greater than 35 minutes - CODE STATUS was discussed, patient remains full code. Surrogate decision-maker unchanged. Multiple medical problems were addressed. More than 50% of the time spent coordinating care, discussing management plans with involved caregivers. Management plans discussed with involved personnels. Medical decision making was of moderate to high complexity, patient's has multiple comorbidities. Medications reviewed and adjusted accordingly: Yes
[2017-12-07] MEDS ORDERED: HUM INSULIN NPH/REG INSULIN HM 100 UNIT/1 ML 3 ML SUBCUT SCH (22:00)
[2017-12-08] MEDS ORDERED: HUM INSULIN NPH/REG INSULIN HM 100 UNIT/1 ML 3 ML SUBCUT SCH (08:00)
== END 2017-12-07 13:05 | disposition home or self-care (01) | DRG 291 ==
LOC: ER 11:48 → INTOOBSV 16:22 → EH 16:22 → 5 21:25 → OBSVTOIN 12-04 07:59
PROVIDERS: ADMIT Emergency Medicine; ATTEND Emergency Medicine
DX: I13.0 Hypertensive heart and chronic kidney disease with heart failure and stage 1 through stage 4 chronic kidney disease, or unspecified chronic kidney disease (principal); I50.33 Acute on chronic diastolic (congestive) heart failure; N17.9 Acute kidney failure, unspecified; E87.1 Hypo-osmolality and hyponatremia; E87.2 Acidosis; N18.2 Chronic kidney disease, stage 2 (mild); E86.0 Dehydration; R91.8 Other nonspecific abnormal finding of lung field; E27.9 Disorder of adrenal gland, unspecified; N28.89 Other specified disorders of kidney and ureter; I25.119 Atherosclerotic heart disease of native coronary artery with unspecified angina pectoris; I49.9 Cardiac arrhythmia, unspecified; E83.39 Other disorders of phosphorus metabolism; D64.9 Anemia, unspecified; E11.9 Type 2 diabetes mellitus without complications; M54.5 Low back pain; E78.5 Hyperlipidemia, unspecified; F32.9 Major depressive disorder, single episode, unspecified; Z79.4 Long term (current) use of insulin; Z79.82 Long term (current) use of aspirin; Z79.899 Other long term (current) drug therapy; E66.09 Other obesity due to excess calories; Z68.31 Body mass index [BMI] 31.0-31.9, adult
CPT/HCPCS: 36415; 71046; 71275; 72110; 72131; 72170; 76770; 80048; 80053; 81001; 82550; 82553; 82962; 83735; 83880; 84100; 84443; 84484; 85025; 85027; 85610; 85730; 87040; 93005; 93010; 93306; 99291; G0378; G8978-GP; G8979-GP; J1644; J1815; J1885; J1940; J2270; J3490; J7030; S0119

== ENCOUNTER → 2017-12-15 | Outpatient (CLI) | payer MEDICARE ==
--- NOTE | 2017-12-17 15:01 | RADIOLOGY REPORT (SQ) ---
EXAM DESCRIPTION: PET CT SKULL/THIGH COMPLETED DATE/TIME: 12/15/2017 10:59 pm REASON FOR STUDY: LUNG CANCER C34.11 MALIGNANT NEOPLASM OF UPPER LOBE, RIGHT BRONCHUS OR L COMPARISON: CT angio chest 12/13/2017 Chest film 12/03/2017 RADIONUCLIDE AND DOSE: 12.8 mCi F18 FDG The route of agent administration: Intravenous FASTING BLOOD SUGAR: 129 mg/dl CONTRAST TYPE AND DOSE: No CT contrast given. TECHNIQUE: Blood glucose level was verified. Above dose of FDG was injected intravenously. 2-D seg mented attenuation correction images were obtained from the base of the skull to the midthighs. Nonc ontrast CT images were obtained for attenuation correction and fusion with emission images. CT image s were performed without oral or intravenous contrast and are not sensitive for parenchymal lesions. A series of overlapping emission PET images were obtained. Images reviewed and manipulated at [facility] work station by the radiologist. Images stored on PACS. LIMITATIONS: None. FINDINGS: HEAD AND NECK: No areas of abnormal metabolic activity in the soft tissues of the head and neck. CHEST: No areas of abnormal metabolic activity in the chest. Specifically, the 1.4 cm nodule in the right middle lobe on axial image 76 has minimal if any metabolic activity, with SUV of 1.1 which is b elow blood pool and liver activity. Consider short interval follow-up CT to exclude growth or change . 4 mm noncalcified granuloma in the right middle lobe axial image 75 of doubtful clinical significance . ABDOMEN AND PELVIS: No areas of abnormal metabolic activity in the abdomen or pelvis. There is a right adrenal 13 mm nodule with SUV of 1.5, below blood pool and liver baseline activity. There is a left adrenal 15 mm nodule with SUV of 1.5, below blood pool and liver baseline activity. Expected physiologic activity is present in the genitourinary system and bowel. PROXIMAL LOWER EXTREMITIES: No areas of abnormal metabolic activity in the soft tissues of the lower extremities. BONES: No abnormal metabolic activity in the visualized skeleton. ADDITIONAL CT FINDINGS: Heavy coronary artery calcification, moderate cardiomegaly. Calcified gallst ones. Diffuse degenerative changes in the spine. OTHER: Liver background SUV 3.0. Blood pool background activity SUV 2.0. IMPRESSION: The right middle lobe 1.4 cm nodule has minimal if any metabolic activity with SUV of 1. 1. This is below baseline activity of blood pool and liver, consider short-term follow-up CT to excl ude growth or change. Probable bilateral adrenal adenomas. No worrisome increased metabolic activity in the adrenal glands TECHNICAL DOCUMENTATION: JOB ID: [id number] [employer]- All Rights Reserved
== END ==
LOC: RAD 20:05
PROVIDERS: ATTEND Internal Medicine
DX: C34.11 Malignant neoplasm of upper lobe, right bronchus or lung (principal)
CPT/HCPCS: 78815; A9552

== ENCOUNTER → 2017-12-25 | Outpatient (CLI) | payer MEDICARE ==
[2017-12-25 13:07] LABS: ABSOLUTE BASOPHILS # (AUTO) 0.1 10^3/uL (0.0-0.2); ABSOLUTE EOSINOPHILS # (AUTO) 0.2 10^3/uL (0.0-0.6); ABSOLUTE LYMPHOCYTES (AUTO) 2.9 10^3/uL (0.5-4.7); ABSOLUTE MONOCYTES (AUTO) 0.7 10^3/uL (0.1-1.4); EOSINOPHILS % (AUTO) 1.8 % (0-6); HEMATOCRIT 37.2 % (36.0-47.0); HEMOGLOBIN 12.2 g/dL (12.0-15.5); LYMPHOCYTES % (AUTO) 32.9 % (13-45); MEAN CORPUSCULAR HEMOGLOBIN 28.4 pg (27.0-33.4); MEAN CORPUSCULAR HGB CONC 32.7 g/dL (32.0-36.0); MEAN CORPUSCULAR VOLUME 87 fl (80-97); PLATELET COUNT 294 10^3/uL (150-450); RED BLOOD COUNT 4.28 10^6/uL (3.72-5.28); RED CELL DISTRIBUTION WIDTH 15.1 % (11.5-14.0); SEGMENTED NEUTROPHILS % (AUTO) 56.3 % (42-78); TOTAL CELLS COUNTED % (AUTO) 100 %; WHITE BLOOD COUNT 8.9 10^3/uL (4.0-10.5)
[2017-12-25 13:13] LABS: APPEARANCE,URINE CLEAR; BILIRUBIN,URINE NEGATIVE (NEGATIVE); COLOR,URINE STRAW; GLUCOSE, URINE NEGATIVE (NEGATIVE); KETONES,URINE NEGATIVE (NEGATIVE); LEUKOCYTE ESTERASE,URINE NEGATIVE (NEGATIVE); NITRITE,URINE NEGATIVE (NEGATIVE); PROTEIN,URINE NEGATIVE (NEGATIVE); URINE SPECIFIC GRAVITY 1.005; UROBILINOGEN,URINE NEGATIVE mg/dL (<2.0)
[2017-12-25 13:23] LABS: ALBUMIN 4.1 g/dL (3.5-5.0); ANION GAP 8 (5-19); BLOOD UREA NITROGEN 19 mg/dL (7-20); CALCIUM 9.7 mg/dL (8.4-10.2); CARBON DIOXIDE 31 mmol/L (22-30); CHLORIDE 100 mmol/L (98-107); GLUCOSE 58 mg/dL (75-110); PHOSPHORUS 4.1 mg/dL (2.5-4.5); POTASSIUM 3.8 mmol/L (3.6-5.0); SODIUM 139.3 mmol/L (137-145)
[2017-12-26 11:40] LABS: CREATININE URINE 16.6 mg/dL (Not Estab.); MICROALBUMIN URINE <3.0 ug/mL (Not Estab.)
== END ==
LOC: OD 12:20
PROVIDERS: ATTEND Internal Medicine Nephrology
DX: N17.9 Acute kidney failure, unspecified (principal); D64.9 Anemia, unspecified; E11.9 Type 2 diabetes mellitus without complications
CPT/HCPCS: 36415; 80048; 81001; 82040; 82043; 82306; 82570; 83970; 84100; 85025

== ENCOUNTER 2018-02-18 12:02 | Day surgery (SDC) | payer MEDICARE ==
[~2018-02-18 12:02] MED LIST changes: +BUPIVACAINE HCL 0.5 % INJ/PF 30 ML SDV ONE; +CEFAZOLIN SODIUM 2 GM in DEXTROSE 5%-WATER 100 ML IV PRN; -DEXAMETHASONE SOD PHOSPHATE INJ 4 MG/1 ML VIAL ONE; +FENTANYL CITRATE INJ/PF 100 MCG/2 ML AMPUL ONE; -GLYCOPYRROLATE INJ 0.4 MG/2 ML VIAL ONE; +LIDOCAINE 1% INJ-PF (10 MG/ML) 30 ML SDV ONE; -LIDOCAINE 2% INJ-PF (20 MG/ML) 2 ML AMPUL ONE; +MIDAZOLAM 2 MG/2 ML INJ ONE; -NORMAL SALINE 1000 ML (RENAL PATIENTS) IV PRN; -ONDANSETRON HCL INJ/PF 4 MG/2 ML SDV ONE; +PROPOFOL INJ 200 MG/20 ML VIAL IV ONE; -SUCCINYLCHOLINE CHLORIDE INJ 200 MG/10 ML VIAL ONE
--- NOTE | 2018-02-18 13:28 | EKG REPORT ---
SEVERITY:- ABNORMAL ECG - SINUS RHYTHM PROBABLE LVH WITH SECONDARY REPOL ABNRM : Confirmed by: Jayy Domingo MD 18-Feb-2018 13:26:57
[2018-02-18 13:30] LABS: HEMATOCRIT 36.6 % (36.0-47.0); HEMOGLOBIN 11.8 g/dL (12.0-15.5); MEAN CORPUSCULAR HGB CONC 32.4 g/dL (32.0-36.0); MEAN CORPUSCULAR VOLUME 80 fl (80-97); PLATELET COUNT 292 10^3/uL (150-450); RED BLOOD COUNT 4.55 10^6/uL (3.72-5.28); RED CELL DISTRIBUTION WIDTH 16.3 % (11.5-14.0); WHITE BLOOD COUNT 7.3 10^3/uL (4.0-10.5)
[2018-02-18] MEDS ORDERED: PROMETHAZINE HCL INJ 25 MG/1 ML VIAL IV PRN ×2 (13:32)
[2018-02-18] MEDS ORDERED: MEPERIDINE HCL/PF INJ 25 MG/1 ML DISP.SYRIN IV PRN (13:32)
[2018-02-18] MEDS ORDERED: FENTANYL CITRATE INJ/PF 100 MCG/2 ML AMPUL IV PRN ×3 (13:32)
[2018-02-18] MEDS ORDERED: DIPHENHYDRAMINE HCL 50 MG/ML VIAL IV PRN (13:32)
[2018-02-18 13:51] LABS: ANION GAP 9 (5-19); BLOOD UREA NITROGEN 19 mg/dL (7-20); CALCIUM 9.4 mg/dL (8.4-10.2); CARBON DIOXIDE 28 mmol/L (22-30); CHLORIDE 101 mmol/L (98-107); GLUCOSE 142 mg/dL (75-110); POTASSIUM 4.1 mmol/L (3.6-5.0); SODIUM 138.1 mmol/L (137-145)
[2018-02-18] MEDS ORDERED: KETOROLAC TROMETHAMINE 60 MG/2 ML SDV IM PRN (13:54)
[2018-02-18] MEDS ORDERED: OXYCODONE-ACETAMINOPHEN 5-325 MG TABLET PO PRN (13:54)
[2018-02-18] MEDS ORDERED: RINGERS SOLUTION,LACTATED 1,000 ML IV PRN (13:54)
[2018-02-18] MEDS ORDERED: ONDANSETRON HCL INJ/PF 4 MG/2 ML SDV IV PRN (13:54)
--- NOTE | 2018-02-18 13:57 | Operative Report ---
Operative Report DATE OF SURGERY: 02/18/18 PREOPERATIVE DIAGNOSIS: Painful Hardware Left Elbow POSTOPERATIVE DIAGNOSIS: Same OPERATION: Removal Hardware Left Elbow SURGEON: KELSY BACA ANESTHESIA: LMAC COMPLICATIONS: None ESTIMATED BLOOD LOSS: <10cc PROCEDURE: Indication for above procedure: 72-year-old female who sustained a trans-olecranon [place] fracture dislocation. Patient underwent open reduction internal fixation with radial head arthroplasty. Patient recovered appropriately postoperatively but developed hardware loosening and ultimately retained screw which was causing her discomfort. We discussed treatment options and decision was made to proceed with operative treatment. Procedure In Detail: Patient was seen and evaluated in the preoperative holding area. The upper extremity was initialized and marked. Patient received 2g of Ancef IV for bacterial prophylaxis. Patient was taken back to the operative room where transferred to the operative table and placed under anesthesia. Once they were adequately anesthetized a nonsterile tourniquet was placed on the upper extremity. A surgical team debriefing was performed ensuring all instrumentation was available, the surgical procedure was discussed with possible concerns reviewed. Local block was performed utilizing 5 cc of 50: 50 mixture 1% lidocaine 0.5% Marcaine. The upper extremity was prepped with ChloraPrep and draped in a sterile fashion. A timeout was done identifying correct patient, procedure and extremity everyone in attendance agree with this and verbalized no concerns. The extremity was exsanguinated the tourniquet was inflated to 250 mmHg. Previous skin incision was utilized posteriorly. The retained screw was identified and removed in its entirety. The wound was then copiously irrigated with normal saline and closed with interrupted 3-0 nylon suture. Elbow range of motion was 30-95 crepitation resolved after removal of the screw. C-arm fluoroscopy was obtained which demonstrated healed fracture of the olecranon however nonunion of the medial coronoid fragment but no evidence of ulnohumeral dislocation however there was mild widening. Radiocapitellar joint demonstrate maintained reduction. Soft dressing was then placed postoperatively. Tourniquet was deflated. Sponge counts, instrument counts, needle counts counts were correct. Patient was then awoken from anesthesia. Transferred from the operating room table to the operating room stretcher. There was no intraoperative complications patient tolerated procedure well stable to PACU. Postoperative plan: Patient will follow-up the office in 2 weeks for wound check and suture removal. Will continue occupational therapy.
--- NOTE | 2018-02-18 14:00 | Discharge Summary ---
Discharge Summary (SDC) - Discharge Final Diagnosis: Left trans-olecranon fracture dislocation Date of Surgery: 02/18/18 Discharge Date: 02/18/18 Condition: Good Treatment or Instructions: Schedule Follow Up w/ Dr. Solo Malone @ [facility] to be seen in 10-14 days or as scheduled [place]: Admire: [place]: May remove dressing on postop day #3, keep incision covered and dry. Ice and elevate May begin finger range of motion attempting to make full fist. Stool softener of choice when on pain medication. Prescriptions: Tramadol HCl 50 mg PO Q8 #20 tablet Referrals: KATHERIN SCHRADER MD [Primary Care Provider] - Discharge Diet: As Tolerated Respiratory Treatments at Home: Deep Breathing/Coughing Discharge Activity: No Lifting Over 10 Pounds, No Lifting/Push/Pulling Report the Following to Your Physician Immediately: Fever over 101 Degrees, Unusual Bleeding, Redness, Swelling, Warmth, Increased Soreness
--- NOTE | 2018-02-18 14:47 | RADIOLOGY REPORT (SQ) ---
EXAM DESCRIPTION: NO CHG FLUORO; ELBOW LEFT AP/LATERAL COMPLETED DATE/TIME: 02/18/2018 2:25 pm REASON FOR STUDY: LEFT ELBOW HARDWARE REMOVAL ASSISTED W/ FLUORO IN OR S52.272A MONTEGGIA'S FRACTUR E OF LEFT ULNA, INIT FOR CLOS FX COMPARISON: None. FLUOROSCOPY TIME: 17 seconds 4 images saved to PACS. TECHNIQUE: Intra-operative images acquired during surgical procedure to evaluate progress. NUMBER OF IMAGES: For LIMITATIONS: None. FINDINGS: Four views of the elbow. This appears to be the left elbow. Extensive changes of previou s ORIF and arthroplasty. There is a non-fixed bone fragment medially with several metal pins within. Correlate with history. IMPRESSION: IMAGE(S) OBTAINED DURING PROCEDURE. COMMENT: Quality ID [id number]: Final reports for procedures using fluoroscopy that document radiation exp osure indices, or exposure time and number of fluorographic images (if radiation exposure indices are not available) Please consult full operative report of the attending physician for description of the procedure. TECHNICAL DOCUMENTATION: JOB ID: [id number] [employer]- All Rights Reserved Reading location - IP/workstation name: [email or web address]
--- NOTE | 2018-02-18 14:47 | RADIOLOGY REPORT (SQ) ---
EXAM DESCRIPTION: NO CHG FLUORO; ELBOW LEFT AP/LATERAL COMPLETED DATE/TIME: 02/18/2018 2:25 pm REASON FOR STUDY: LEFT ELBOW HARDWARE REMOVAL ASSISTED W/ FLUORO IN OR S52.272A MONTEGGIA'S FRACTUR E OF LEFT ULNA, INIT FOR CLOS FX COMPARISON: None. FLUOROSCOPY TIME: 17 seconds 4 images saved to PACS. TECHNIQUE: Intra-operative images acquired during surgical procedure to evaluate progress. NUMBER OF IMAGES: For LIMITATIONS: None. FINDINGS: Four views of the elbow. This appears to be the left elbow. Extensive changes of previou s ORIF and arthroplasty. There is a non-fixed bone fragment medially with several metal pins within. Correlate with history. IMPRESSION: IMAGE(S) OBTAINED DURING PROCEDURE. COMMENT: Quality ID [id number]: Final reports for procedures using fluoroscopy that document radiation exp osure indices, or exposure time and number of fluorographic images (if radiation exposure indices are not available) Please consult full operative report of the attending physician for description of the procedure. TECHNICAL DOCUMENTATION: JOB ID: [id number] [employer]- All Rights Reserved Reading location - IP/workstation name: [email or web address]
[2018-02-18 16:12] VITALS: BP 156/69
[2018-02-18] MEDS ORDERED: GLIMEPIRIDE 4 MG TABLET PO SCH (18:00)
[2018-02-18] MEDS ORDERED: (PENDING PHARMACY ID) (Metoprolol Succinate [Metoprolol Succinate] 100 MG) PO SCH (22:00)
[2018-02-18] MEDS ORDERED: (PENDING PHARMACY ID) (Pravastatin Sodium [Pravastatin Sodium] 20 MG) PO SCH (22:00)
[2018-02-18] MEDS ORDERED: CLONIDINE HCL 0.2 MG TABLET PO SCH (22:00)
[2018-02-18] MEDS ORDERED: (PENDING PHARMACY ID) (Melatonin [Melatonin] 10 MG) PO SCH (22:00)
[2018-02-19] MEDS ORDERED: ASPIRIN 81 MG TABLET, ENT COATED PO SCH (10:00)
[2018-02-19] MEDS ORDERED: (PENDING PHARMACY ID) (Multivitamin [Multivitamins] 1 CAP) PO SCH (10:00)
[2018-02-19] MEDS ORDERED: FUROSEMIDE 40 MG TABLET PO SCH (10:00)
[2018-02-19] MEDS ORDERED: LISINOPRIL 10 MG TABLET PO SCH (10:00)
== END 2018-02-18 15:45 | disposition home or self-care (01) ==
LOC: OROUT 12:02
PROVIDERS: ATTEND Orthopaedic Surgery
DX: T84.84XA Pain due to internal orthopedic prosthetic devices, implants and grafts, initial encounter (principal); Y83.8 Other surgical procedures as the cause of abnormal reaction of the patient, or of later complication, without mention of misadventure at the time of the procedure; S52.272A Monteggia's fracture of left ulna, initial encounter for closed fracture; W51.XXXA Accidental striking against or bumped into by another person, initial encounter; W19.XXXA Unspecified fall, initial encounter; E11.9 Type 2 diabetes mellitus without complications; E78.5 Hyperlipidemia, unspecified; I10 Essential (primary) hypertension; F34.1 Dysthymic disorder; K21.9 Gastro-esophageal reflux disease without esophagitis; Z85.828 Personal history of other malignant neoplasm of skin; Z79.82 Long term (current) use of aspirin; Z79.899 Other long term (current) drug therapy; Z79.84 Long term (current) use of oral hypoglycemic drugs; Z79.4 Long term (current) use of insulin
CPT/HCPCS: 36415; 85027; 80048; 73070; 93005; 93010; 20680; J2250; J3490 ×2; J0690; J3010; J2704; 01740

== ENCOUNTER → 2018-03-19 | Outpatient (CLI) | payer MEDICARE ==
[2018-03-19 13:53] LABS: ANION GAP 12 (5-19); BLOOD UREA NITROGEN 25 mg/dL (7-20); CALCIUM 9.6 mg/dL (8.4-10.2); CARBON DIOXIDE 29 mmol/L (22-30); CHLORIDE 102 mmol/L (98-107); GLUCOSE 48 mg/dL (75-110); POTASSIUM 3.8 mmol/L (3.6-5.0); SODIUM 143.3 mmol/L (137-145)
== END ==
LOC: OD 12:53
PROVIDERS: ATTEND Physician Assistant Medical
DX: R06.02 Shortness of breath (principal); N17.9 Acute kidney failure, unspecified; N18.3 Chronic kidney disease, stage 3 (moderate); E21.3 Hyperparathyroidism, unspecified
CPT/HCPCS: 36415; 80048; 83880; 83970

== ENCOUNTER → 2018-04-14 | Outpatient (CLI) | payer MEDICARE ==
--- NOTE | 2018-04-14 15:49 | RADIOLOGY REPORT (SQ) ---
EXAM DESCRIPTION: CT CHEST WITHOUT COMPLETED DATE/TIME: 04/14/2018 12:48 pm REASON FOR STUDY: R91.1 SOLITARY PULMONARY NODULE J98.4 R91.1 SOLITARY PULMONARY NODULE COMPARISON: PET-CT 12/15/2017 CT chest 12/03/2017 TECHNIQUE: CT scan performed of the chest without intravenous contrast. Images reviewed with lung, soft tissue and bone windows. Reconstructed coronal and sagittal MPR images reviewed. All images st ored on PACS. All CT scanners at this facility use dose modulation, iterative reconstruction, and/or weight based d osing when appropriate to reduce radiation dose to as low as reasonably achievable (ALARA). [facility]: Dose Right [facility]: CareDose [facility]: Dose Right [facility]: Teradose 4D [facility]: [employer] RADIATION DOSE: CT Rad equipment meets quality standard of care and radiation dose reduction techniq ues were employed. CTDIvol: 16.5 mGy. DLP: 618 mGy-cm. mGy. LIMITATIONS: No technical limitations. FINDINGS: LUNGS AND PLEURA: Stable 14 mm nodule in the right middle lobe axial image 70. Stable 4 mm right middle lobe nodule axial image 66. Stable subpleural noncalcified granulomas elsewhere in the lungs. No acute infiltrates. No pleural effusion. No pneumothorax. No worrisome interstitial changes. HILAR AND MEDIASTINAL STRUCTURES: No identified masses or abnormal nodes. No obvious aneurysm. HEART AND VASCULAR STRUCTURES: Stable cardiomegaly and diffuse heavy coronary artery calcifications. No pericardial effusion UPPER ABDOMEN: Calcified stone in the gallbladder. 14 mm right adrenal nodule, 15 mm left adrenal no dule of doubtful significance. THYROID AND OTHER SOFT TISSUES: No masses. No adenopathy. BONES: Since the prior studies, patient has developed a subacute upper endplate thoracic spine compre ssion at T3 with less than 25% loss of height. HARDWARE: None in the chest. OTHER: No other significant findings. IMPRESSION: Stable 14 mm right middle lobe nodule. Follow-up noncontrast CT in November 2018 is dipika mmended. If this nodule is stable at that time, then a single follow-up to complete evaluation would be recommended in November 2019. TECHNICAL DOCUMENTATION: JOB ID: [id number] Quality ID # [id number]: Final reports with documentation of one or more dose reduction techniques (e.g., Au tomated exposure control, adjustment of the mA and/or kV according to patient size, use of iterative reconstruction technique) 2010 [employer]- All Rights Reserved Reading location - IP/workstation name: [email or web address]
== END ==
LOC: RAD 13:07
PROVIDERS: ATTEND Internal Medicine
DX: J98.4 Other disorders of lung (principal); R91.1 Solitary pulmonary nodule
CPT/HCPCS: 71250

== ENCOUNTER → 2018-06-27 | Outpatient (CLI) | payer MEDICARE ==
[2018-06-27 13:07] LABS: ABSOLUTE BASOPHILS # (AUTO) 0.1 10^3/uL (0.0-0.2); ABSOLUTE EOSINOPHILS # (AUTO) 0.5 10^3/uL (0.0-0.6); ABSOLUTE LYMPHOCYTES (AUTO) 2.2 10^3/uL (0.5-4.7); ABSOLUTE MONOCYTES (AUTO) 0.7 10^3/uL (0.1-1.4); ABSOLUTE NEUT (AUTO) 5.2 10^3/uL (1.7-8.2); HEMATOCRIT 35.7 % (36.0-47.0); HEMOGLOBIN 11.7 g/dL (12.0-15.5); LYMPHOCYTES % (AUTO) 25.5 % (13-45); MEAN CORPUSCULAR HEMOGLOBIN 26.6 pg (27.0-33.4); MEAN CORPUSCULAR HGB CONC 32.7 g/dL (32.0-36.0); MEAN CORPUSCULAR VOLUME 81 fl (80-97); MONOCYTES % (AUTO) 8.1 % (3-13); PLATELET COUNT 294 10^3/uL (150-450); RED BLOOD COUNT 4.39 10^6/uL (3.72-5.28); RED CELL DISTRIBUTION WIDTH 16.4 % (11.5-14.0); SEGMENTED NEUTROPHILS % (AUTO) 59.4 % (42-78); TOTAL CELLS COUNTED % (AUTO) 100 %; WHITE BLOOD COUNT 8.8 10^3/uL (4.0-10.5)
[2018-06-27 13:42] LABS: ALBUMIN 3.9 g/dL (3.5-5.0); ANION GAP 12 (5-19); BLOOD UREA NITROGEN 18 mg/dL (7-20); CALCIUM 8.9 mg/dL (8.4-10.2); CARBON DIOXIDE 29 mmol/L (22-30); CHLORIDE 100 mmol/L (98-107); GLUCOSE 224 mg/dL (75-110); PHOSPHORUS 3.8 mg/dL (2.5-4.5); POTASSIUM 3.8 mmol/L (3.6-5.0); SODIUM 140.7 mmol/L (137-145)
[2018-06-27 14:05] LABS: APPEARANCE,URINE CLEAR; BILIRUBIN,URINE NEGATIVE (NEGATIVE); COLOR,URINE STRAW; GLUCOSE, URINE NEGATIVE (NEGATIVE); KETONES,URINE NEGATIVE (NEGATIVE); LEUKOCYTE ESTERASE,URINE NEGATIVE (NEGATIVE); NITRITE,URINE NEGATIVE (NEGATIVE); PROTEIN,URINE NEGATIVE (NEGATIVE); URINE SPECIFIC GRAVITY 1.008; UROBILINOGEN,URINE NEGATIVE mg/dL (<2.0)
[2018-06-28 11:38] LABS: CREATININE URINE 23.9 mg/dL (Not Estab.); MICROALBUMIN URINE 11.6 ug/mL (Not Estab.)
== END ==
LOC: OD 12:10
PROVIDERS: ATTEND Internal Medicine Nephrology
DX: N18.3 Chronic kidney disease, stage 3 (moderate) (principal); N25.81 Secondary hyperparathyroidism of renal origin; E11.9 Type 2 diabetes mellitus without complications
CPT/HCPCS: 36415; 80048; 81001; 82040; 82043; 82306; 82570; 83970; 84100; 85025

== ENCOUNTER → 2018-12-01 | Outpatient (CLI) | payer MEDICARE ==
--- NOTE | 2018-12-01 12:13 | RADIOLOGY REPORT (SQ) ---
EXAM DESCRIPTION: CT CHEST WITHOUT COMPLETED DATE/TIME: 12/01/2018 10:18 am REASON FOR STUDY: PULMONARY NODULE (R91.1) R91.1 SOLITARY PULMONARY NODULE COMPARISON: 04/14/2018. Correlation: CT 12/15/2017. TECHNIQUE: CT scan performed of the chest without intravenous contrast. Images reviewed with lung, soft tissue and bone windows. Reconstructed coronal and sagittal MPR images reviewed. All images st ored on PACS. All CT scanners at this facility use dose modulation, iterative reconstruction, and/or weight based d osing when appropriate to reduce radiation dose to as low as reasonably achievable (ALARA). [facility]: Dose Right [facility]: CareDose [facility]: Dose Right [facility]: Teradose 4D [facility]: [employer] RADIATION DOSE: CT Rad equipment meets quality standard of care and radiation dose reduction techniq ues were employed. CTDIvol: 17.2 mGy. DLP: 633 mGy-cm. mGy. LIMITATIONS: No technical limitations. FINDINGS: LUNGS AND PLEURA: 14 mm nodule in the middle lobe is stable. This was not hypermetabolic on PET. 4 mm nodule more superiorly in the middle lobe is stable. No developing nodules or infiltra te. HILAR AND MEDIASTINAL STRUCTURES: No identified masses or abnormal nodes. No obvious aneurysm. HEART AND VASCULAR STRUCTURES: No aneurysm. No pericardial effusion. UPPER ABDOMEN: No significant findings. Limited exam. THYROID AND OTHER SOFT TISSUES: No masses. No adenopathy. BONES: No significant finding. HARDWARE: None in the chest. OTHER: No other significant findings. IMPRESSION: Stable pulmonary nodules. TECHNICAL DOCUMENTATION: JOB ID: [id number] Quality ID # [id number]: Final reports with documentation of one or more dose reduction techniques (e.g., Au tomated exposure control, adjustment of the mA and/or kV according to patient size, use of iterative reconstruction technique) 2010 [employer]- All Rights Reserved Reading location - IP/workstation name: [email or web address]
== END ==
LOC: RAD 10:06
PROVIDERS: ATTEND Internal Medicine
DX: R91.1 Solitary pulmonary nodule (principal)
CPT/HCPCS: 71250

== ENCOUNTER → 2018-12-03 | Outpatient (CLI) | payer MEDICARE ==
[2018-12-03 09:27] LABS: ABSOLUTE BASOPHILS # (AUTO) 0.1 10^3/uL (0.0-0.2); ABSOLUTE EOSINOPHILS # (AUTO) 0.3 10^3/uL (0.0-0.6); ABSOLUTE LYMPHOCYTES (AUTO) 2.4 10^3/uL (0.5-4.7); ABSOLUTE MONOCYTES (AUTO) 0.7 10^3/uL (0.1-1.4); BASOPHILS % (AUTO) 0.8 % (0-2); EOSINOPHILS % (AUTO) 2.7 % (0-6); HEMATOCRIT 40.7 % (36.0-47.0); HEMOGLOBIN 13.7 g/dL (12.0-15.5); LYMPHOCYTES % (AUTO) 25.3 % (13-45); MEAN CORPUSCULAR HEMOGLOBIN 29.5 pg (27.0-33.4); MEAN CORPUSCULAR HGB CONC 33.6 g/dL (32.0-36.0); MEAN CORPUSCULAR VOLUME 88 fl (80-97); MONOCYTES % (AUTO) 7.6 % (3-13); PLATELET COUNT 291 10^3/uL (150-450); RED BLOOD COUNT 4.63 10^6/uL (3.72-5.28); RED CELL DISTRIBUTION WIDTH 14.8 % (11.5-14.0); SEGMENTED NEUTROPHILS % (AUTO) 63.6 % (42-78); TOTAL CELLS COUNTED % (AUTO) 100 %; WHITE BLOOD COUNT 9.4 10^3/uL (4.0-10.5)
[2018-12-03 09:58] LABS: ANION GAP 8 (5-19); BLOOD UREA NITROGEN 33 mg/dL (7-20); CALCIUM 9.5 mg/dL (8.4-10.2); CARBON DIOXIDE 34 mmol/L (22-30); CHLORIDE 95 mmol/L (98-107); GLUCOSE 197 mg/dL (75-110); POTASSIUM 4.1 mmol/L (3.6-5.0); SODIUM 137.3 mmol/L (137-145)
[2018-12-04 13:38] LABS: MICROALBUMIN URINE 15.2 ug/mL (Not Estab.)
== END ==
LOC: OD 08:12
PROVIDERS: ATTEND Internal Medicine Nephrology
DX: I12.9 Hypertensive chronic kidney disease with stage 1 through stage 4 chronic kidney disease, or unspecified chronic kidney disease (principal); N18.3 Chronic kidney disease, stage 3 (moderate); D35.00 Benign neoplasm of unspecified adrenal gland; N25.81 Secondary hyperparathyroidism of renal origin
CPT/HCPCS: 36415; 80048; 82043; 82088; 82533; 82570; 83835; 83970; 84244; 84443; 85025

== ENCOUNTER → 2019-01-20 | Outpatient (CLI) | payer MEDICARE ==
[2019-01-20 10:12] LABS: ANION GAP 11 (5-19); BLOOD UREA NITROGEN 25 mg/dL (7-20); CALCIUM 9.7 mg/dL (8.4-10.2); CARBON DIOXIDE 31 mmol/L (22-30); CHLORIDE 98 mmol/L (98-107); GLUCOSE 134 mg/dL (75-110); POTASSIUM 4.7 mmol/L (3.6-5.0)
== END ==
LOC: OD 08:19
PROVIDERS: ATTEND Internal Medicine Nephrology
DX: E11.22 Type 2 diabetes mellitus with diabetic chronic kidney disease (principal); I12.9 Hypertensive chronic kidney disease with stage 1 through stage 4 chronic kidney disease, or unspecified chronic kidney disease; N18.3 Chronic kidney disease, stage 3 (moderate); F03.90 Unspecified dementia, unspecified severity, without behavioral disturbance, psychotic disturbance, mood disturbance, and anxiety
CPT/HCPCS: 36415; 80048; 82607; 84443

== ENCOUNTER → 2020-05-13 | Outpatient (CLI) | payer MEDICARE, MEDICAID ==
--- NOTE | 2020-05-13 14:21 | RADIOLOGY REPORT (SQ) ---
EXAM DESCRIPTION: CT HEAD WITHOUT IMAGES COMPLETED DATE/TIME: 05/13/2020 2:07 pm REASON FOR STUDY: R55 SYNCOPE AND COLLAPSE R55 SYNCOPE AND COLLAPSE COMPARISON: None. TECHNIQUE: Axial images acquired through the brain without intravenous contrast. Images reviewed wi th bone, brain and subdural windows. Additional sagittal and coronal reconstructions were generated. Images stored on PACS. All CT scanners at this facility use dose modulation, iterative reconstruction, and/or weight based d osing when appropriate to reduce radiation dose to as low as reasonably achievable (ALARA). [facility]: Dose Right [facility]: CareDose [facility]: Dose Right [facility]: Teradose 4D [facility]: [employer] RADIATION DOSE: CT Rad equipment meets quality standard of care and radiation dose reduction techniq ues were employed. CTDIvol: 48.5 mGy. DLP: 854 mGy-cm. LIMITATIONS: None. FINDINGS: There is diffuse age-appropriate cerebral and cerebellar volume loss. The caliber of the ventricles is concordant with the degree of sulcation. The confluent areas of low-attenuation throug hout the supratentorial periventricular and subcortical white matter are nonspecific but likely repre sent the sequela of chronic microvascular ischemia. There is no acute intracranial hemorrhage, vascular territorial infarct, extra-axial fluid collection , mass effect or midline shift. The foreman-white matter differentiation is preserved. There is no eff acement of the cerebral sulci or basal subarachnoid cisterns. The orbits and globes are intact. The paranasal sinuses are clear. There is no fracture of the burton rium. IMPRESSION: Sequela of chronic microvascular ischemia without a superimposed acute intracranial abno rmality. EVIDENCE OF ACUTE STROKE: NO. COMMENT: Quality ID # [id number]: Final reports with documentation of one or more dose reduction techniques (e.g., Automated exposure control, adjustment of the mA and/or kV according to patient size, use of iterative reconstruction technique) TECHNICAL DOCUMENTATION: JOB ID: [id number] 2010 [employer]- All Rights Reserved Reading location - IP/workstation name: [email or web address]
== END ==
LOC: RAD 13:47
PROVIDERS: ATTEND Internal Medicine Endocrinology, Diabetes & Metabolism
DX: R55 Syncope and collapse (principal)
CPT/HCPCS: 70450